=== PATIENT | female | born 1945 | race Asian ===

== ENCOUNTER 2018-08-11 20:52 | Inpatient (IN) | payer MEDICARE, MEDICAID ==
[~2018-08-11] VITALS: Ht 152.4 cm; Wt 47.2 kg
[2018-08-11] MEDS ORDERED: Solu-MEDROL 125mg Inj IVP ONE (21:00)
--- NOTE | 2018-08-11 21:00 | Emergency Room Report ---
History of Present Illness General Source: Patient Present Illness HPI Patient is a 73-year-old female brought in by EMS after increased shortness of breath. Patient had recent hospitalization and treatment for pneumonia with ESBL. Patient was noted to have market increased shortness of breath. Patient was brought in by EMS on CPAP. She was noted to have continued difficulty breathing. Patient had prior history of COPD as well as cardiomegaly. Patient had been noted to have increased difficulty with respirations and had some chronic debilitation and was noted to be DNR Allergies: Coded Allergies: No Known Allergies (Unverified , 08/11/18) Patient History Past Medical History: see triage record Reviewed Nursing Documentation: PMH: Agreed; PSxH: Agreed Review of Systems All Other Systems: limited - by mental status Physical Exam General Appearance: alert, severe distress, Chronically Ill Head: normocephalic Neck: limited range of motion Respiratory: accessory muscle use, rhonchi, wheezing Cardiovascular #1: tachycardia, edema - trace Gastrointestinal: normal inspection, soft Genitourinary: no CVA tenderness Musculoskeletal: normal inspection Neurologic: alert, client relations representative III-XII nml as tested, motor weakness Psychiatric: depressed affect Skin: normal inspection, normal color Procedures Critical Care Time Critical Care Time Patient had a critical medical condition which untreated could potentially result in life or limb threatening injury. Total critical care time excluding procedures approximately 45 minutes. Medical Decision Making Diagnostic Impression: Primary Impression: Respiratory failure Additional Impressions: Pneumonitis COPD (chronic obstructive pulmonary disease) ER Course Patient presented for shortness of breath. Differential included but was not limited to anemia, pneumonia, pneumothorax, myocardial infarction, pericardial effusion, congestive heart failure, acidosis. Because of complexity of patient' s case laboratory testing and imaging studies were ordered.Patient was noted to have some evidence of respiratory failure. She was started on BiPAP. Patient was noted to have improvement in her symptoms after BiPAP. Patient was given IV Lasix. She was started on IV antibiotics for presumed pneumonia.Patient was noted to be DNR. Dr. Willian Hobson was contacted for inpatient management. Laboratory Tests Test 08/11/18 20:55 08/11/18 21:05 08/11/18 21:45 08/12/18 04:10 Arterial Blood pH 7.400 (7.350-7.450) Arterial Blood Partial Pressure CO2 44.9 mmHg (35.0-45.0) Arterial Blood Partial Pressure O2 511.0 mmHg (75.0-100.0) H Arterial Blood HCO3 27.2 mmol/L (22.0-26.0) H Arterial Blood Oxygen Saturation 99.2 % (95-100) Arterial Blood Base Excess 2.1 (-2-2) H Chris Test Positive White Blood Count 18.0 K/UL (4.8-10.8) H Pending Red Blood Count 3.06 M/UL (4.20-5.40) L Pending Hemoglobin 8.8 G/DL (12.0-16.0) L Pending Hematocrit 27.5 % (37.0-47.0) L Pending Mean Corpuscular Volume 90 FL (80-99) Pending Mean Corpuscular Hemoglobin 28.8 PG (27.0-31.0) Pending Mean Corpuscular Hemoglobin Concent 32.1 G/DL (32.0-36.0) Pending Red Cell Distribution Width 16.4 % (11.6-14.8) H Pending Platelet Count 94 K/UL (150-450) L Pending Mean Platelet Volume 7.1 FL (6.5-10.1) Pending Neutrophils (%) (Auto) % (45.0-75.0) Pending Lymphocytes (%) (Auto) % (20.0-45.0) Pending Monocytes (%) (Auto) % (1.0-10.0) Pending Eosinophils (%) (Auto) % (0.0-3.0) Pending Basophils (%) (Auto) % (0.0-2.0) Pending Differential Total Cells Counted 100 Neutrophils % (Manual) 92 % (45-75) H Lymphocytes % (Manual) 6 % (20-45) L Monocytes % (Manual) 1 % (1-10) Eosinophils % (Manual) 1 % (0-3) Basophils % (Manual) 0 % (0-2) Band Neutrophils 0 % (0-8) Platelet Estimate Decreased L Platelet Morphology Normal Polychromasia 1+ Anisocytosis 1+ Prothrombin Time 10.5 SEC (9.30-11.50) Prothrombin Time INR 1.0 (0.9-1.1) PTT 28 SEC (23-33) Sodium Level 144 MMOL/L (136-145) Pending Potassium Level 4.9 MMOL/L (3.5-5.1) Pending Chloride Level 107 MMOL/L (98-107) Pending Carbon Dioxide Level 29 MMOL/L (21-32) Pending Anion Gap 8 mmol/L (5-15) Blood Urea Nitrogen 27 mg/dL (7-18) H Pending Creatinine 1.3 MG/DL (0.55-1.30) Pending Estimate Glomerular Filtration Rate mL/min (>60) Pending Glucose Level 249 MG/DL (74-106) H Pending Lactic Acid Level 1.00 mmol/L (0.4-2.0) Calcium Level 8.9 MG/DL (8.5-10.1) Pending Total Bilirubin 0.7 MG/DL (0.2-1.0) Pending Aspartate Amino Transferase (AST) 16 U/L (15-37) Pending Alanine Aminotransferase (ALT) 12 U/L (12-78) Pending Alkaline Phosphatase 46 U/L (46-116) Pending Total Creatine Kinase 33 U/L (26-308) Creatine Kinase MB 0.9 NG/ML (0.0-3.6) Creatine Kinase MB Relative Index 2.7 Troponin I 0.014 ng/mL (0.000-0.056) Pro-B-Type Natriuretic Peptide 65480 pg/mL (0-125) H Pending Total Protein 7.1 G/DL (6.4-8.2) Pending Albumin 2.9 G/DL (3.4-5.0) L Pending Globulin 4.2 g/dL Pending Albumin/Globulin Ratio 0.7 (1.0-2.7) L Urine Color Pale yellow Urine Appearance Clear Urine pH 5 (4.5-8.0) Urine Specific Gonzales 1.010 (1.005-1.035) Urine Protein 3+ (NEGATIVE) H Urine Glucose (UA) Negative (NEGATIVE) Urine Ketones Negative (NEGATIVE) Urine Blood 1+ (NEGATIVE) H Urine Nitrite Negative (NEGATIVE) Urine Bilirubin Negative (NEGATIVE) Urine Urobilinogen Normal MG/DL (0.0-1.0) Urine Leukocyte Esterase 1+ (NEGATIVE) H Urine RBC 2-4 /HPF (0 - 2) H Urine WBC 0-2 /HPF (0 - 2) Urine Squamous Epithelial Cells Few /LPF (NONE/OCC) Urine Bacteria Few /HPF (NONE) Magnesium Level Pending Thyroid Stimulating Hormone (TSH) Pending EKG Diagnostic Results Rate: tachycardiac Rhythm: NSR ST Segments: no acute changes - 129 Status: improved Disposition: ADMITTED INPATIENT Condition: Serious David Mahoney MD Aug 11, 2018 21:00
--- NOTE | 2018-08-11 21:00 | NUR ---
ED Nurse Note: Pt arrived with EMT and family and c/o having SOB and chest pain since 4 hours ago in SNF. Pt has Hx DM , asthma, HTN. Pt is AO x 2 times, BP 174/105, tachycardia (124), SOB with C pap(O2 Sat 100%). ERMD and RT at bedside.
[2018-08-11 21:26] LABS: HEMATOCRIT 27.5 % (37.0-47.0); HEMOGLOBIN 8.8 G/DL (12.0-16.0); MEAN CORPUSCULAR VOLUME 90 FL (80-99); PLATELET COUNT 94 K/UL (150-450); RED BLOOD COUNT 3.06 M/UL (4.20-5.40); RED CELL DISTRIBUTION WIDTH 16.4 % (11.6-14.8)
[2018-08-11 21:36] LABS: ANION GAP 8 mmol/L (5-15); BLOOD UREA NITROGEN 27 mg/dL (7-18); CALCIUM 8.9 MG/DL (8.5-10.1); CARBON DIOXIDE 29 MMOL/L (21-32); CHLORIDE 107 MMOL/L (98-107); CREATININE 1.3 MG/DL (0.55-1.30); POTASSIUM 4.9 MMOL/L (3.5-5.1); SODIUM 144 MMOL/L (136-145)
--- NOTE | 2018-08-11 21:40 | NUR ---
ED Nurse Note: Pt refused F/C insertion, Pt's family states Pt can urine with bedpan. Inform ERMD.
--- NOTE | 2018-08-11 21:47 | NUR ---
ED Nurse Note: Urine and blood sample sent to lab.
[2018-08-11 21:51] LABS: ALANINE AMINOTRANSFERASE 12 U/L (12-78); ALBUMIN 2.9 G/DL (3.4-5.0); ALBUMIN/GLOBULIN RATIO 0.7 (1.0-2.7); ALKALINE PHOSPHATASE 46 U/L (46-116); ASPARTATE AMINO TRANSFERASE 16 U/L (15-37); BILIRUBIN,TOTAL 0.7 MG/DL (0.2-1.0); CKMB 0.9 NG/ML (0.0-3.6); CREATINE KINASE 33 U/L (26-308)
[2018-08-11 21:51] LABS: APPEARANCE,URINE CLEAR; BILIRUBIN, URINE NEGATIVE (NEGATIVE); COLOR,URINE PALE YELLOW; GLUCOSE, URINE (UA) NEGATIVE (NEGATIVE); KETONES,URINE NEGATIVE (NEGATIVE); LEUKOCYTE ESTERASE ,URINE 1+ (NEGATIVE); NITRITE,URINE NEGATIVE (NEGATIVE); PH,URINE 5 (4.5-8.0); PROTEIN,URINE 3+ (NEGATIVE); UROBILINOGEN,URINE NORMAL MG/DL (0.0-1.0)
[2018-08-11 21:54] VITALS: BP 150/71
[2018-08-11] MEDS ORDERED: IPRATROPIU0.2 MG/1 M HHN (22:15)
[2018-08-11] MEDS ORDERED: BENADRYL25 MG ORAL (22:15)
[2018-08-11] MEDS ORDERED: ATORVASTATIN CA10 MG ORAL (22:15)
[2018-08-11] MEDS ORDERED: ZOLPIDEM TARTRAT5 MG ORAL (22:15)
[2018-08-11] MEDS ORDERED: PIPERACIL-TA3.375 G1 IV (22:15)
[2018-08-11] MEDS ORDERED: MILK OF MA400 MG/51 ORAL (22:15)
[2018-08-11] MEDS ORDERED: METOPROLOL SUCC50 MG ORAL (22:15)
[2018-08-11] MEDS ORDERED: PANTOPRAZOLE SO40 MG ORAL (22:15)
[2018-08-11] MEDS ORDERED: ZOFRAN4 MG ORAL (22:15)
[2018-08-11] MEDS ORDERED: FERROUS SULFAT325 MG ORAL (22:15)
[2018-08-11] MEDS ORDERED: ADALAT10 MG ORAL (22:15)
[2018-08-11] MEDS ORDERED: GLUCAGON W/DILUE1 MG IJ (22:15)
[2018-08-11] MEDS ORDERED: NOVOLOG100 UNIT/5 (22:15)
[2018-08-11] MEDS ORDERED: AMLODIPINE BESYL5 MG ORAL (22:15)
[2018-08-11] MEDS ORDERED: Piperacillin/Tazobactam 3.375 GM in NS 110 ML IVPB ONE (22:45)
[2018-08-11] MEDS ORDERED: Vancomycin 1 GM in D5W 275 ML IVPB SCH (22:45)
--- NOTE | 2018-08-11 22:47 | NUR ---
ED Nurse Note: Dr Hobson seen Pt and family at bedside.
[2018-08-11] MEDS ORDERED: Gentamicin 120mg/100ml NS INJ 100 ML IVPB ONE (23:30)
[2018-08-11 23:54] VITALS: BP 147/75
[2018-08-12] VITALS (7 sets, daily range): BP systolic 132–152; BP diastolic 63–80
--- NOTE | 2018-08-12 | NUR ---
ED Nurse Note: Pt admit to [facility] room 237-1. Report and belongings given to RN Bharat. Family is on bedside.
--- NOTE | 2018-08-12 00:10 | NUR ---
NURSE NOTES: Report received from MARYSE Garcias. [facility] Pt is alert and oriented x3. Denies any pain at this time. Telemonitor applied and SR noted. Belonging checked and skin intact. V/S of BP 152/80, HR 98, RR 23, Sat 100%, on Bipap 15/5, 35%. IV on R FA 20 G, intact and patent. L FA 20 G, intact and patent. Family member at the bed side. Bed in the lowest position. Side rails up x3. Call light within reach. Will continue to monitor.
[2018-08-12] MEDS ORDERED: GENTAMICIN IVPB ONE (00:33)
[2018-08-12] MEDS ORDERED: Zosyn 3.375gm inj ONE (00:34)
--- NOTE | 2018-08-12 03:00 | NUR ---
NURSE NOTES: Observed pt sleeping on the bed. Family member at the bedside. No acute distress noted at this time.
[2018-08-12] MEDS: Albuterol/Ipratropium 3ml neb HHN SCH ×6 (03:18→23:01)
[2018-08-12] MEDS ORDERED: NORVASC5 MG ORAL (03:47)
[2018-08-12] MEDS ORDERED: PROTONIX40 MG ORAL (03:47)
[2018-08-12] MEDS ORDERED: CATAPRES0.1 MG ORAL ×2 (03:47)
[2018-08-12] MEDS ORDERED: PROSTAT SUGAR FREE PO (03:47)
[2018-08-12] MEDS ORDERED: FOLIC ACID1 MG ORAL (03:47)
[2018-08-12] MEDS ORDERED: FERROUS SULFAT325 MG ORAL (03:47)
[2018-08-12] MEDS ORDERED: ACETAMINOPHEN325 M1 ORAL (03:47)
[2018-08-12] MEDS ORDERED: CREON DR 36,001 EACH PO (03:47)
[2018-08-12] MEDS ORDERED: JANUVIA25 MG ORAL (03:47)
[2018-08-12] MEDS ORDERED: DUONEB 0.5-3(2.53 ML HHN (03:47)
[2018-08-12] MEDS ORDERED: DULCOLAX10 MG RC (03:47)
[2018-08-12] MEDS: Piperacillin/Tazobactam 3.375 GM in NS 110 ML IVPB SCH ×3 (05:45→21:10)
[2018-08-12 06:12] LABS: HEMATOCRIT 23.2 % (37.0-47.0); HEMOGLOBIN 7.6 G/DL (12.0-16.0); MEAN CORPUSCULAR VOLUME 90 FL (80-99); PLATELET COUNT 57 K/UL (150-450); RED BLOOD COUNT 2.59 M/UL (4.20-5.40); RED CELL DISTRIBUTION WIDTH 16.1 % (11.6-14.8); WHITE BLOOD COUNT 10.7 K/UL (4.8-10.8)
[2018-08-12 06:34] LABS: ALANINE AMINOTRANSFERASE 7 U/L (12-78); ALBUMIN 2.5 G/DL (3.4-5.0); ALBUMIN/GLOBULIN RATIO 0.6 (1.0-2.7); ALKALINE PHOSPHATASE 42 U/L (46-116); ANION GAP 5 mmol/L (5-15); ASPARTATE AMINO TRANSFERASE 11 U/L (15-37); BILIRUBIN,TOTAL 0.7 MG/DL (0.2-1.0); BLOOD UREA NITROGEN 29 mg/dL (7-18); CALCIUM 8.7 MG/DL (8.5-10.1); CARBON DIOXIDE 28 MMOL/L (21-32); CHLORIDE 108 MMOL/L (98-107); CREATININE 1.4 MG/DL (0.55-1.30); SODIUM 141 MMOL/L (136-145)
[2018-08-12] MEDS: NovoLOG Insulin Flexpen SUBQ SCH ×4 (06:41→21:08)
--- NOTE | 2018-08-12 07:30 | NUR ---
RESPIRATORY NOTE: Received pt on ordered BiPAP settings. Removed BiPAP mask to offset pressure, assess skin integrity, and readjust mask. No skin breakdown or redness noted. BiPAP mask placed back on. BiPAP alarms are on and audible. BiPAP is plugged into red outlet. Will monitor pt progress.
--- NOTE | 2018-08-12 07:56 | NUR ---
HAND-OFF: Report given to MARYSE Holm.
--- NOTE | 2018-08-12 08:05 | NUR ---
NURSE NOTES: Received patient on bipap 15/5 35%. at bedside. Switched to NC 3 L. Patient is now being fed by hustand. Purewhich intact. Skin intact. R forearm 20 L forearm 20. HBG reported to Dr. Phillips - new order put by previous shift nurse to repeat stat CBC. Luxembourgish speaking - language barrier. Will continue to monitor patient.
--- NOTE | 2018-08-12 08:23 | NUR ---
CASE MANAGEMENT:REVIEW 73 YR OLD FEMALE BIBA FROM [facility] CC; SOB AND CHEST PAIN SI: RESPIRATORY FAILURE. COPD 98.4 124 28 167/81 100% ON BIPAP WBC+18.0 H/H-8.8/27.5 IS: IV SOLUMEDROL X1 IV LASIX X1 IV ZOSYN X1 IV VANCOMYCIN X1 IV GENTAMICIN X1 CHEST XRAY BLOOD CX : TO STEP DOWN UNIT
[2018-08-12 08:47] LABS: HEMATOCRIT 24.7 % (37.0-47.0); HEMOGLOBIN 7.9 G/DL (12.0-16.0); MEAN CORPUSCULAR VOLUME 89 FL (80-99); PLATELET COUNT 64 K/UL (150-450); RED BLOOD COUNT 2.78 M/UL (4.20-5.40); RED CELL DISTRIBUTION WIDTH 16.3 % (11.6-14.8); WHITE BLOOD COUNT 10.1 K/UL (4.8-10.8)
--- NOTE | 2018-08-12 09:22 | NUR ---
NURSE NOTES: HBG repeat result reported to Dr. Phillips.
--- NOTE | 2018-08-12 09:30 | NUR ---
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
--- NOTE | 2018-08-12 11:26 | Diagnostic Imaging Report ---
Indication: Shortness of breath Technique: One view of the chest Comparison: none Findings: There is diffuse bilateral extensive interstitial and airspace disease. More focal masslike opacity is seen in the right upper lobe, measuring approximately 4 cm in diameter. There is suggestion of bilateral pleural fluid. Impression: Bilateral diffuse interstitial and airspace disease, acuity indeterminate Right upper lobe masslike opacity versus more focal consolidation Suspect small bilateral pleural effusions.
--- NOTE | 2018-08-12 12:07 | NUR ---
NURSE NOTES: Family at bedside. Patient turned and repositioned. Able to make needs known - asked for bedpan to void. No new orders at this time. Will continue plan of care.
--- NOTE | 2018-08-12 13:14 | Consultation ---
DATE OF CONSULTATION: 08/11/2018 CARDIOLOGY CONSULTATION CONSULTING PHYSICIAN: Willian Hobson M.D. REQUESTING PHYSICIAN: Doug Kaur M.D. REASON: Acute respiratory distress with elevated natriuretic peptide assay. HISTORY OF PRESENT ILLNESS: This is a Italian female age 73 who has [facility] following an episode of pneumonia treated just two weeks ago at [facility]. The patient apparently had severe respiratory distress and required BiPAP support for at time. She grew out Pseudomonas and has been on IV antibiotics to complete her course of therapy at the jail facility. Today, her respiratory distress developed and worsened prompting transfer to the emergency room. The patient denies chest pain. She has been congested. She has been getting her antibiotics while she improved since her initial hospitalization several weeks ago, she has declined over the past few days. She had remained on antibiotics. PAST MEDICAL HISTORY: Longstanding asthma, hypertension, type 2 diabetes mellitus, hyperlipidemia, chronic anemia, chronic kidney disease, and history of congestive heart failure. ALLERGIES: None. MEDICATIONS: Reviewed and reconciled. SOCIAL HISTORY: Negative for smoking, alcohol, or substance abuse. She emigrated from [place] about 10 years ago. Advanced directives, Do Not Intubate. FAMILY HISTORY: Noncontributory. REVIEW OF SYSTEMS: Otherwise not obtainable from patient due to her respiratory symptoms and language barrier, however, her daughter has made available with pertinent data outlined above. PHYSICAL EXAMINATION: GENERAL: Frail, in moderate respiratory distress. Alert. VITAL SIGNS: Blood pressure 150/71, pulse 101, respirations 22, afebrile, T-max 100.7, oxygen saturation is 100% on BiPAP mask. LUNGS: Accessory muscle use. LUNGS: Coarse breath sounds. Scattered rhonchi. Expiratory wheezing. HEART: Regular rhythm. Rapid rate. Normal S1, S2. ABDOMEN: Soft. EXTREMITIES: No edema. LABORATORY AND DIAGNOSTIC DATA: EKG, sinus tachycardia, otherwise normal. Troponin 0.014. Pro-natriuretic peptide over 20,000. Lactic acid 1. BUN 27, creatinine 1.3, potassium 4.9. Albumin 2.9. ABG, 7.40, 45, 511. White count 18, hemoglobin 8.8, platelets 94,000. Urinalysis with 0 to 2 white cells. Chest x-ray with extensive infiltrates right greater than left. IMPRESSION: 1. Aspiration, healthcare-acquired pneumonia, recent Pseudomonas pneumonia. 2. Acute respiratory insufficiency. 3. Leukocytosis. 4. Chronic anemia. 5. Moderate protein-calorie malnutrition. 6. Hypoxia. 7. Acute on chronic diastolic congestive heart failure. 8. Type 2 diabetes mellitus with no signs of acidosis. PLAN: 1. Do Not Intubate reaffirmed with family members namely has been a daughter. 2. Inhaled bronchodilators. 3. Panculture. 4. Broad-spectrum antibiotics including Pseudomonas coverage. 5. Continue beta-sher. 6. Hold IV fluids. 7. Titrate antihypertensives based on clinical parameters. 8. DVT and stress ulcer prophylaxes. 9. Insulin coverage by sliding scale. 10. Taper oxygen and BiPAP support as clinical condition improves. Willian Hobson M.D. DR: ISAMAR JOB#: [id number] CC:
--- NOTE | 2018-08-12 14:48 | NUR ---
ST NOTE: BEDSIDE SWALLOW EVAL RECEIVED BEDSIDE SWALLOW EVAL ORDER CHART REVIEWED PRIOR THE EVALUATION PT IS A 73-YEAR-OLD MOHAWK-SPEAKING FEMALE WHO WAS ADMITTED DUE TO RESP FAILURE. DYSPHAGIA RISK FACTORS: ACUTE RESP INSUFFICIENCY, ASP PNA, RECENT BILATERAL PNA W/PLEURAL EFFUSION, H/O GERD, COPD, DMII, HTN, ?H/O DEMENTIA. (PER DAUGHTER, PT DOESN'T HAVE DEMENTIA BUT FORGETFUL), MODERATE PROTEIN-CALORIE MALNUTRITION. PLOF: PT LIVES AT HOME WITH FAMILY PRIOR LAST HOSPITALIZATION AT [facility] FROM 07/28/18-08/05/18. PT WAS DISCHARGED TO [facility]. PER CHART, PT WAS ON NCS REGULAR WITH THIN LIQUID DIET. PER PT'S POLST: DNR/DNI, SELECTIVE TX AND OKAY WITH TRIAL PERIOD OF ARTIFICIAL NUTRITION, INCLUDING FEEDING TUBES. CURRENT STATUS: PT WAS OFF THE BIPAP; AND PT WAS ON NC(3L). SPO2: 100/102 AND RR: 22. PER DAUGHTER, DID NOT NOTICE ANY SWALLOWING DIFFICULTY AND PT'S DENTURES DO NOT FIT HER VERY WELL. MEDICATION: PT IS ON PROTONIX GIVEN PO TRIALS: THIN(TSP/CUP), NECTAR THICK(TSP) AND PUREE(TSP) INITIAL IMPRESSION: PROBABLE MILD TO MODERATE OR WORSENED OROPHARYNGEAL DYSPHAGIA MISSING TEETH. MILDLY DECREASED LABIAL AND LINGUAL MOVEMENT AND STRENGTH MILD INCREASED ORAL TRANSIT TIME AND OROPHARYNGEAL TRANSIT TIME, FAIR LARYNGEAL ELEVATION, DELAYED COUGH WITH THIN LIQUID WAS NOTED. HAS HIGH (SILENT) ASPIRATION DUE TO RECURRENT PNA. RECOMMENDATIONS: 1. FOR QUALITY OF LIFE, CONTINUE ORAL DIET CHANGED DIET TO CCH(HIGH)MOIST PUREE WITH NECTAR THICK LIQUIDS. 2. STRICT ASPIRATION/REFLUX PRECAUTIONS WITH 1TO1 FEEDING. 3. VIDEOSWALLOW STUDY 4. SKILLED ST SERVICE AND MANAGEMENT. D/W PT'S DAUGHTER, RN, RITAI. POSTED ASPIRATION/REFLUX PRECAUTIONS SIGN.
--- NOTE | 2018-08-12 16:14 | Consultation ---
Consult Note Assessment/Plan dict resp failure pneum CHF agree w present rx Uriel Miranda MD Aug 12, 2018 16:14
--- NOTE | 2018-08-12 18:06 | NUR ---
NURSE NOTES: BM x1 large, brown, soft. No new orders. VSS. Tachycardic - MD aware. Will continue plan of care.
--- NOTE | 2018-08-12 19:05 | NUR ---
NURSE NOTES: Received report from Bebeto Fontaine RN. Patient is awake in bed, A/O x3. No s/s of acute distress noted. 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 Saturating well on 2L O2 via nasal cannula. Right forearm 20g IV saline lock, intact and patent. Left forearm 20g IV saline lock, intact and patent. Bed locked in lowest position with side rails up x3. Call light left within reach, family remains at bedside. Will continue to monitor. Addendum: 08/12/18 at 2008 by ARIELLA GALINDO RN Patient is on 3L O2 -- NOT 2L
[2018-08-12] MEDS ORDERED: Heparin 5000 units/ml inj SUBQ SCH (21:00)
[2018-08-12] MEDS: Metoprolol 25mg tab ORAL SCH (21:09)
--- NOTE | 2018-08-12 21:45 | NUR ---
HAND-OFF: Report given to Josesito Ballard RN.
--- NOTE | 2018-08-12 21:50 | NUR ---
NURSE NOTES: Received patient from ARIELLA SERRA. Alert and oriented x 4. able to make needs known.on NC 2L with no respiratory distress noted. o2 saturation 98%.ST with HR of 119. Denies any pain at this time. family at bedside.call light in reach. bed locked in low position. will continue to monitor patient.
--- NOTE | 2018-08-12 23:00 | Consultation ---
DATE OF CONSULTATION: 08/12/2018 PULMONARY CONSULTATION HISTORY OF PRESENT ILLNESS: The patient is a 73-year-old Yoruba-speaking female who presented to the emergency department from a nearby long term. The history is obtained from review of the records and from the daughter at the bedside. The patient was hospitalized about two weeks ago at [facility] with pneumonia and was found to have pseudomonas infection. I do not know if she had a bloodstream infection. She was treated with antibiotics and transferred to a long term where she became worse and developed respiratory distress. She was transferred here by paramedics and was placed on BiPAP initially. She has improved and now is in less distress. She is coughing up some thick sputum. She is not having any high fevers at this time. PAST MEDICAL HISTORY: The patient never smoked. She has longstanding asthma, hypertension, diabetes, hyperlipidemia, chronic kidney disease, and congestive heart failure. ALLERGIES: None. MEDICATIONS: Reviewed. She is presently on vancomycin and Zosyn in addition to respiratory treatments. CODE STATUS: DNR according to pulse. REVIEW OF SYSTEMS: Cannot be obtained. According to the daughter, the patient is normally functioning at home prior to her illness. PHYSICAL EXAMINATION: GENERAL: The patient is alert and responds appropriately. She is coughing frequently and sounds congested. VITAL SIGNS: Show that she had a temperature up to 100.7, but is down at this time. Other vital signs are stable. Her saturations are 100% on nasal cannula. She was on BiPAP overnight, is improved at this time. HEENT: Head is normocephalic. NECK: No jugular venous distention. CHEST: Has extensive rales on the right side more than the left, anterior and posterior. CARDIAC: Rhythm is regular. ABDOMEN: Soft and nontender. Liver and spleen are not enlarged. EXTREMITIES: No clubbing, cyanosis, or edema. LABORATORY AND DIAGNOSTIC DATA: Chest x-ray is reviewed and shows extensive bilateral infiltrates and possible edema. Laboratory studies are notable for BUN 29, creatinine 1.4, blood sugar 294, natriuretic peptide 21,000, and albumin 2.5. White count was 108[address] last night, but today is down to 10,000 and hemoglobin 7.9. Blood gas was satisfactory. Urinalysis is negative. IMPRESSION: 1. Acute respiratory failure, requiring BiPAP, improved. 2. Sepsis. 3. Extensive bilateral pneumonia. 4. Congestive heart failure. 5. Diabetes. 6. Hypertension. PLAN: The patient is on appropriate respiratory treatments and antibiotics as well as oxygen. We will use BiPAP at night for the present time. If she does not improve, Infectious Disease consultation would be suggested. Thank you for asking me to see her in consultation. Uriel Miranda M.D. DR: DIMAS JOB#: [id number] CC: Waleska Oconnell M.D. MTDD
[2018-08-12] MEDS: Vancomycin 500mg/D5W 110ml IVPB SCH ×2 (23:30)
[2018-08-13] VITALS (7 sets, daily range): BP systolic 129–173; BP diastolic 63–88
[2018-08-13] MEDS: Albuterol/Ipratropium 3ml neb HHN SCH ×6 (03:00→22:58)
--- NOTE | 2018-08-13 04:00 | Progress Note ---
DATE: 08/12/2018 CARDIOLOGY PROGRESS NOTE SUBJECTIVE: The patient is slightly improved. She is off BiPAP earlier today and on a cannula. She continues to have cough, congestion, and shortness of breath. OBJECTIVE: VITAL SIGNS: Blood pressure 147/67, pulse 130, respirations 20, afebrile. LUNGS: Coarse breath sounds. Moderate rhonchi, rales. HEART: Regular rhythm. Rapid rate. Normal S1, S2. ABDOMEN: Soft, trace edema. LABORATORY DATA: White count 10, hemoglobin 7.9. Potassium 5, BUN 29, creatinine 1.4. Magnesium 1.2. Pro-natriuretic peptide 21,000. IMPRESSION: 1. Extensive pneumonia. 2. History of Pseudomonas pneumonia. 3. Acute respiratory failure. 4. Acute on chronic diastolic congestive heart failure. 5. Severe hypomagnesemia. 6. Severe protein-calorie malnutrition. 7. Sepsis. 8. Hypertensive heart disease. PLAN: 1. Antimicrobials. 2. Await cultures. 3. Respiratory hygiene. 4. BiPAP support. 5. IV magnesium. 6. DVT and stress ulcer prophylaxis. 7. Cautious diuresis. 8. Followup echocardiogram report. Willian Hobson M.D. DR: LYNN JOB#: [id number] CC:
[2018-08-13 05:48] LABS: HEMATOCRIT 22.2 % (37.0-47.0); HEMOGLOBIN 7.2 G/DL (12.0-16.0); MEAN CORPUSCULAR VOLUME 90 FL (80-99); PLATELET COUNT 79 K/UL (150-450); RED BLOOD COUNT 2.46 M/UL (4.20-5.40); RED CELL DISTRIBUTION WIDTH 16.7 % (11.6-14.8); WHITE BLOOD COUNT 14.9 K/UL (4.8-10.8)
--- NOTE | 2018-08-13 05:55 | NUR ---
Patient was placed on Bipap due to being in distress. patient tolerated breathing treatment well but still in distress. Patients breath sounds are diminished rales wheeze. patient is sating 94-99%. patient seems comfortable on BIPAP. will continue to monitor. RESPIRATORY NOTE:
[2018-08-13] MEDS: Piperacillin/Tazobactam 3.375 GM in NS 110 ML IVPB SCH ×3 (06:00→22:16)
[2018-08-13] MEDS: NovoLOG Insulin Flexpen SUBQ SCH ×4 (06:04→21:00)
--- NOTE | 2018-08-13 07:43 | NUR ---
RESPIRATORY NOTE: received pt on bipap 15/5 fio2 45%. pt is labored breathing with bilateral rhonchi/wheeze upon auscultation. HR slightly elevated prior to breathing tx. current spo2 96%. no redness or skin tears around face or neck area. will cont to monitor pt.
--- NOTE | 2018-08-13 07:55 | NUR ---
HAND-OFF: Report given to MARYSE KENNEDY using SBAR at bedside.patient still on BiPAP 15/5 45%.
--- NOTE | 2018-08-13 07:55 | NUR ---
NURSE NOTES: Report received from Olena Ballard RN.Pt sitting up on bed,sob on Bipap 15/5 Fio2 45%,anxious,S-Tach on the monitor,,tachypneic RR 30/min,kept NPO bec on Bipap,skin warm and dry IV sites to LFA and RFA intact,SR up x2 HOB elevated,bed lock in lowest position,daughter at bedside.
[2018-08-13] MEDS: Metoprolol 25mg tab ORAL SCH (09:00)
--- NOTE | 2018-08-13 09:10 | NUR ---
NURSE NOTES: Dr Miranda at bedside,discussed with family member re plans of care.informed re low H/H,ordered blood transfusion x1.
--- NOTE | 2018-08-13 09:21 | General Progress Note ---
Assessment/Plan Problem List: (1) Dyspnea ICD Codes: R06.00 - Dyspnea, unspecified SNOMED: 573825181 (2) Respiratory distress ICD Codes: R06.03 - Acute respiratory distress SNOMED: 772936329 (3) COPD (chronic obstructive pulmonary disease) ICD Codes: J44.9 - Chronic obstructive pulmonary disease, unspecified SNOMED: 35984331 (4) Pneumonitis ICD Codes: J18.9 - Pneumonia, unspecified organism SNOMED: 896218005 (5) Respiratory failure ICD Codes: J96.90 - Respiratory failure, unspecified, unspecified whether with hypoxia or hypercapnia SNOMED: 650986989 Status: not improved Assessment/Plan iv abx resp rx follow up cultures transfuse checks tool ob ct chest when stable Subjective ROS Limited/Unobtainable: No Constitutional: Reports: malaise, weakness HEENT: Reports: no symptoms Cardiovascular: Reports: chest pain Respiratory: Reports: cough, shortness of breath, sputum Gastrointestinal/Abdominal: Reports: no symptoms Genitourinary: Reports: no symptoms Neurologic/Psychiatric: Reports: no symptoms Endocrine: Reports: no symptoms Hematologic/Lymphatic: Reports: anemia Allergies: Coded Allergies: No Known Allergies (Unverified , 08/11/18) All Systems: reviewed and negative except above Subjective remains congested. + cough. no fevers. no bleeding. Objective Last 24 Hour Vital Signs Date Time Temp Pulse Resp B/P (MAP) Pulse Ox O2 Delivery O2 Flow Rate FiO2 08/13/18 07:44 118 26 97 Bi-pap 45 08/13/18 07:41 120 32 94 Facial 45 08/13/18 07:38 121 27 93 Bi-pap 45 08/13/18 05:35 104 28 98 Facial 35 08/13/18 04:27 95 26 100 Nasal Cannula 3.0 36 08/13/18 04:17 97 28 97 Full Face 35 08/13/18 04:17 97 27 97 Nasal Cannula 2.0 28 08/13/18 04:00 97.7 98 28 152/74 (100) 98 08/13/18 04:00 Bi-pap 08/13/18 04:00 45 08/13/18 04:00 98 08/13/18 01:07 120 33 95 Full Face 35 08/13/18 00:00 45 08/13/18 00:00 98.6 129 30 173/86 (115) 97 08/13/18 00:00 Bi-pap 08/13/18 00:00 45 08/13/18 00:00 129 08/12/18 23:12 121 31 98 Full Face 35 08/12/18 23:11 119 28 100 Nasal Cannula 3.0 36 08/12/18 23:00 45 08/12/18 22:59 110 28 96 Nasal Cannula 2.0 28 08/12/18 21:09 130 147/67 08/12/18 20:00 Bi-pap 08/12/18 20:00 98.8 130 30 147/67 (93) 100 08/12/18 20:00 114 08/12/18 20:00 3.0 08/12/18 19:28 119 27 100 Nasal Cannula 3.0 36 08/12/18 19:20 118 26 100 Nasal Cannula 2.0 28 08/12/18 16:00 112 08/12/18 16:00 99.1 112 20 141/71 (94) 100 08/12/18 16:00 Bi-pap 08/12/18 16:00 3.0 08/12/18 15:15 92 20 100 Nasal Cannula 2.0 28 08/12/18 15:15 Nasal Cannula 08/12/18 12:00 Bi-pap 08/12/18 12:00 95 08/12/18 12:00 98.1 102 24 132/63 (86) 100 08/12/18 12:00 3.0 08/12/18 11:59 103 22 100 Nasal Cannula 3.0 36 08/12/18 11:42 88 20 100 Nasal Cannula 2.0 28 Intake and Output 08/12/18 08/13/18 19:00 07:00 Intake Total 347.5 ml Output Total 800 ml Balance -452.5 ml Intake Oral 100 ml IV Total 247.5 ml Output Urine Total 800 ml # Voids 3 Laboratory Tests 08/12/18 11:53: Random Gentamicin Level 3.7 08/13/18 03:40: White Blood Count 14.9H, Red Blood Count 2.46L, Hemoglobin 7.2L, Hematocrit 22.2L, Mean Corpuscular Volume 90, Mean Corpuscular Hemoglobin 29.3, Mean Corpuscular Hemoglobin Concent 32.5, Red Cell Distribution Width 16.7H, Platelet Count 79L, Mean Platelet Volume 6.1L, Neutrophils (%) (Auto) , Lymphocytes (%) (Auto) , Monocytes (%) (Auto) , Eosinophils (%) (Auto) , Basophils (%) (Auto) , Neutrophils % (Manual) [Pending], Lymphocytes % (Manual) [Pending], Platelet Estimate [Pending], Platelet Morphology [Pending] Height (Feet): 5 Height (Inches): 0.00 Weight (Pounds): 103 General Appearance: WD/WN, lethargic, confused Cardiovascular: normal rate, regular rhythm Respiratory/Chest: rhonchi - bilaterally Abdomen: normal bowel sounds, non tender, soft, no organomegaly Edema: no edema noted Arm (L), no edema noted Arm (R), no edema noted Leg (L), no edema noted Leg (R), no edema noted Pedal (L), no edema noted Pedal (R), no edema noted Generalized Neurologic: alert Doug Kaur MD Aug 13, 2018 09:21
--- NOTE | 2018-08-13 09:40 | NUR ---
RESPIRATORY NOTE: attempted to wean pt off bipap, abg was drawn and pt felt SOB so placed pt back on bipap. pt started to desaturate to mid 80s on 45% VM. On bipap, saturation 94-96% on fio2 45%. will cont to monitor
[2018-08-13] MEDS ORDERED: Isovue-300 100ml vial INJ PRN (10:15)
--- NOTE | 2018-08-13 11:33 | NUR ---
ST NOTE: SWALLOW STATUS: FOLLOWED UP PT'S CONDITIONS. PT SEEN AT BEDSIDE IN AM. PT WAS PUT BACK ON BIPAP LAST NIGHT DUE TO RESP INSUFFICIENCY. RT, MILLY, AT BEDSIDE. PER RT, PT WAS UNABLE OFF THE BIPAP(FIO2:40%), RESPIRATORY RATE IS HIGH: >30s, HR:121. PT ALERT, SHALLOW BREATHING WAS NOTED. PT'S DAUGHTER ALSO AT BEDSIDE. DISCUSSED WITH PT'S DAUGHTER, PT NEEDS TO BE ON NPO AT THIS TIME DUE TO RESP DISTRESS PT IS AT HIGH RISK FOR ASPIRATION. DAUGHTER AGREED. D/W RNMARCIA AND INFORMED MD, DR. STEWARD. POSTED NPO SIGN. Addendum: 08/13/18 at 1502 by ABIGAIL SIMMONS SCRAP MET[employer] BURNER CONSIDER NGT(TEMPORARILY NONORAL FEEDING) WHEN PT IS OFF THE BIPAP.
--- NOTE | 2018-08-13 12:26 | NUR ---
NURSE NOTES: Pt unstable,HR 144/min sustained,temp check T100.6, cold compress applied to forehead and armpits.Pt NPO will give Tylenol per rectum,Called Dr Kaur for elevated HR orders given and carried out.
--- NOTE | 2018-08-13 12:33 | NUR ---
RADIOLOGY DEPT., CHEST X-RAY DONE.-P.DYE
--- NOTE | 2018-08-13 13:38 | Pulmonology Progress Note ---
Assessment/Plan Assessment/Plan 1. Acute respiratory failure, requiring BiPAP, not improved. 2. Sepsis. 3. Extensive bilateral pneumonia. 4. Congestive heart failure. 5. Diabetes. 6. Hypertension. worse and back on BiPAP due to SOB anemia worse - transfuse cont abx serology CT when able Subjective Respiratory: Reports: productive cough, shortness of breath Allergies: Coded Allergies: No Known Allergies (Unverified , 08/11/18) Objective Last 24 Hour Vital Signs Date Time Temp Pulse Resp B/P (MAP) Pulse Ox O2 Delivery O2 Flow Rate FiO2 08/13/18 12:05 Bi-pap 08/13/18 12:04 45 08/13/18 12:01 99.0 125 19 152/84 (106) 93 08/13/18 12:00 129 08/13/18 10:47 121 30 99 Bi-pap 40 08/13/18 10:38 120 32 97 Facial 45 08/13/18 10:36 122 31 96 Bi-pap 45 08/13/18 09:39 120 34 94 Facial 45 08/13/18 09:00 114 166/79 08/13/18 08:00 98.0 114 21 166/79 (108) 96 08/13/18 08:00 Bi-pap 08/13/18 08:00 45 08/13/18 08:00 120 08/13/18 07:44 118 26 97 Bi-pap 45 08/13/18 07:41 120 32 94 Facial 45 08/13/18 07:38 121 27 93 Bi-pap 45 08/13/18 05:35 104 28 98 Facial 35 08/13/18 04:27 95 26 100 Nasal Cannula 3.0 36 08/13/18 04:17 97 28 97 Full Face 35 08/13/18 04:17 97 27 97 Nasal Cannula 2.0 28 08/13/18 04:00 97.7 98 28 152/74 (100) 98 08/13/18 04:00 Bi-pap 08/13/18 04:00 45 08/13/18 04:00 98 08/13/18 01:07 120 33 95 Full Face 35 08/13/18 00:00 45 08/13/18 00:00 98.6 129 30 173/86 (115) 97 08/13/18 00:00 Bi-pap 08/13/18 00:00 45 08/13/18 00:00 129 08/12/18 23:12 121 31 98 Full Face 35 08/12/18 23:11 119 28 100 Nasal Cannula 3.0 36 08/12/18 23:00 45 08/12/18 22:59 110 28 96 Nasal Cannula 2.0 28 08/12/18 21:09 130 147/67 08/12/18 20:00 Bi-pap 08/12/18 20:00 98.8 130 30 147/67 (93) 100 08/12/18 20:00 114 08/12/18 20:00 3.0 08/12/18 19:28 119 27 100 Nasal Cannula 3.0 36 08/12/18 19:20 118 26 100 Nasal Cannula 2.0 28 08/12/18 16:00 112 08/12/18 16:00 99.1 112 20 141/71 (94) 100 08/12/18 16:00 Bi-pap 08/12/18 16:00 3.0 08/12/18 15:15 92 20 100 Nasal Cannula 2.0 28 08/12/18 15:15 Nasal Cannula Intake and Output 08/12/18 08/13/18 19:00 07:00 Intake Total 347.5 ml Output Total 800 ml Balance -452.5 ml Intake Oral 100 ml IV Total 247.5 ml Output Urine Total 800 ml # Voids 3 General Appearance: no acute distress HEENT: atraumatic Respiratory/Chest: crackles/rales Cardiovascular: normal rate Microbiology Date/Time Source Procedure Growth Status 08/11/18 21:20 Blood Blood Culture - Preliminary NO GROWTH AFTER 24 HOURS Resulted 08/11/18 21:05 Blood Blood Culture - Preliminary NO GROWTH AFTER 24 HOURS Resulted 08/11/18 23:15 Rectum VRE Culture - Final Enterococcus Faecium - Vre Complete Laboratory Tests 08/13/18 03:40: White Blood Count 14.9H, Red Blood Count 2.46L, Hemoglobin 7.2L, Hematocrit 22.2L, Mean Corpuscular Volume 90, Mean Corpuscular Hemoglobin 29.3, Mean Corpuscular Hemoglobin Concent 32.5, Red Cell Distribution Width 16.7H, Platelet Count 79L, Mean Platelet Volume 6.1L, Neutrophils (%) (Auto) , Lymphocytes (%) (Auto) , Monocytes (%) (Auto) , Eosinophils (%) (Auto) , Basophils (%) (Auto) , Differential Total Cells Counted 100, Neutrophils % ( Manual) 88H, Lymphocytes % (Manual) 4L, Monocytes % (Manual) 8, Eosinophils % ( Manual) 0, Basophils % (Manual) 0, Band Neutrophils 0, Platelet Estimate DecreasedL, Platelet Morphology Normal, Anisocytosis 1+ 08/13/18 04:00: Legionella pneumophila Group 1 Ab [Pending], Legionella pneumophilia IgM Group 1 [Pending], Mycoplasma pneumoniae IgG Antibody [Pending], Mycoplasma pneumoniae IgM Ab Titer [Pending] 08/13/18 09:30: Arterial Blood pH 7.408, Arterial Blood Partial Pressure CO2 46.8H, Arterial Blood Partial Pressure O2 61.1L, Arterial Blood HCO3 28.9H, Arterial Blood Oxygen Saturation 90.3L, Arterial Blood Base Excess 3.7H, Chris Test Positive Current Medications Medications (Trade) Dose Ordered Sig/Elida Route PRN Reason Start Time Stop Time Status Last Admin Dose Admin Acetaminophen (Tylenol) 650 mg Q4H PRN ORAL Mild Pain/Temp > 100.5 08/11/18 23:30 09/10/18 23:29 08/12/18 23:31 Albuterol/ Ipratropium (Albuterol/ Ipratropium) 3 ml Q4HRT HHN 08/12/18 03:00 08/17/18 02:59 08/13/18 10:36 Dextrose (Dextrose 50%) 25 ml Q30M PRN IV Hypoglycemia 08/11/18 23:30 09/10/18 23:29 Dextrose (Dextrose 50%) 50 ml Q30M PRN IV Hypoglycemia 08/11/18 23:30 09/10/18 23:29 Insulin Aspart (NovoLOG) BEFORE MEALS AND HS SUBQ 08/12/18 06:30 09/11/18 06:29 08/13/18 06:04 Iopamidol (Isovue-300 100ml) 100 ml NOW PRN INJ Radiology Procedure 08/13/18 10:15 08/15/18 10:01 Metoprolol Tartrate (Lopressor) 25 mg Q12HR ORAL 08/12/18 21:00 09/11/18 20:59 08/12/18 21:09 Pantoprazole (Protonix) 40 mg DAILY ORAL 08/12/18 09:00 09/11/18 08:59 08/12/18 09:20 Piperacillin Sod/ Tazobactam Sod 3.375 gm/Sodium Chloride 110 ml @ 27.5 mls/hr EVERY 8 HOURS IVPB 08/12/18 06:00 08/19/18 05:59 08/13/18 06:00 Vancomycin HCl (Vanco rx to dose) 1 ea DAILY PRN MISC Per rx protocol 08/11/18 23:30 09/10/18 23:29 Vancomycin HCl 500 mg/Dextrose 110 ml @ 110 mls/hr Q24H IVPB 08/12/18 23:00 08/17/18 22:59 08/12/18 23:30 Uriel Miranda MD Aug 13, 2018 13:38
--- NOTE | 2018-08-13 13:41 | NUR ---
RD ASSESSMENT & RECOMMENDATIONS SEE CARE ACTIVITY FOR COMPLETE ASSESSMENT DAILY ESTIMATED NEEDS: Needs based on Pulmonary, DM, underweight/ 45kg 30-35 kcals/kg 1776-1666 total kcals 1-1.5 g protein/kg 45-68 g total protein 20-25 mL/kg 900-1125 total fluid mLs NUTRITION DIAGNOSIS: * Swallowing difficulty R/T dysphagia, respiratory status as evidenced by [employer] recommends NPO at this time, pt on BIPAP. * Altered nutrition related lab values R/T diabetes, CHF, clinical condition as evidenced by elev BGs (294 249), elev BNP (82362), low mag (1.2) CURRENT DIET:NPO PO DIET RECOMMENDATIONS: WHEN SAFE FOR PO -> Low Na/ CCHO LOW (texture per [employer]) ENTERAL NUTRITION RECOMMENDATIONS: Glucerna 1.5 @ 40ml/hr x 24 hrs to provide 960ml, 1440kcal, 79g prot, 729ml free water * Once medically appropriate (currently on BIPAP) and TF indicated and part of POC, obtain GI access. * Initiate Glucerna 1.5 @ 10ml/hr x 6 hrs * Advance 10ml q 4-6 hrs as tolerated to goal rate. * HOB over 30 degrees/ water flush per MD. ADDITIONAL RECOMMENDATIONS: * Calibrated bedscale wt for accurate CBW, weekly wts * Monitor NPO status * Monitor respiratory status, ability to feed- on BIPAP at this time * Monitor lytes, replete as needed (low mag) * W/ oral diet: add Glucerna 1 tetra bi TID
[2018-08-13] MEDS ORDERED: Metoprolol 5mg/5ml Inj IVP SCH ×2 (15:30→21:00)
--- NOTE | 2018-08-13 15:33 | Diagnostic Imaging Report ---
Indication: Dyspnea Technique: One view of the chest Comparison: 08/11/2018 Findings: Current exam slightly less heavily exposed. Extensive diffuse interstitial and airspace disease is seen throughout the right lung, questionably slightly increased. Interstitial and airspace opacities in the left lung are less extensive than the right, probably stable. Bilateral small pleural effusions are again demonstrated. The heart size is upper limits of normal. Again demonstrated is evidence of prior upper lumbar vertebral augmentation procedure Impression: Bilateral right greater than left interstitial and airspace disease, stable on the left, suspect slightly worse on the right over 2 days, allowing for differences in technique Persistent bilateral pleural effusions
--- NOTE | 2018-08-13 17:15 | Consultation ---
DATE OF CONSULTATION: 08/13/2018 INFECTIOUS DISEASE CONSULTATION CONSULTING PHYSICIAN: Fátima Shledon M.D. REFERRING PHYSICIAN: Willian Hobson M.D. REASON FOR CONSULTATION: Pneumonia. HISTORY OF PRESENT ILLNESS: This is a 73-year-old lady with history of hypertension, diabetes, asthma, hyperlipidemia, and congestive heart failure, who was transferred with respiratory distress. She is now on a BiPAP. She grew Pseudomonas and an Infectious Disease consultation has been obtained for antibiotics. PAST MEDICAL HISTORY: 1. Diabetes. 2. Hypertension. 3. Asthma. 4. Hyperlipidemia. 5. Anemia. 6. Chronic kidney disease. 7. Congestive heart failure. SOCIAL HISTORY: No history of smoking, alcohol, or drug use. FAMILY HISTORY: Noncontributory. REVIEW OF SYSTEMS: Unable to obtain currently. MEDICATIONS: As an inpatient, she is on vancomycin, metoprolol, Protonix, insulin, Zosyn, albuterol and ipratropium, and Tylenol. ALLERGIES: No known drug allergies. PHYSICAL EXAMINATION: VITAL SIGNS: Temperature 97.7, T-max of 99.1, pulse 120, respiratory rate 34, and blood pressure 152/74. O2 saturation of 94%. HEENT: Pupils are equally reactive to light and accommodation. Mouth appears clean without thrush. The patient is on a BiPAP. NECK: Supple. No adenopathy. No JVD. CARDIOVASCULAR: Regular rate and rhythm. No murmurs. LUNGS: Clear to auscultation bilaterally. No crackles. No wheezes. ABDOMEN: Soft and nontender. No organomegaly. EXTREMITIES: No cyanosis, no clubbing, no edema. LABORATORY AND DIAGNOSTIC DATA: White count 14.9, hemoglobin 7.2, hematocrit 22.2, MCV 90, and platelet count 79. Neutrophils of 88%. Sodium 141, potassium 5, chloride 108, bicarb 28, BUN 29, and creatinine 1.4. Glucose 294. Calcium 8.7. Total bilirubin 0.7, AST 11, ALT 7, and alkaline phosphatase 42. Troponin 0.014. Beta-natriuretic peptide 21,587. Total protein 6.4, albumin 2.5. UA showing 0 to 2 white cells. Rectal swab was positive for VRE. Blood cultures are negative so far. Chest x-ray showing bilateral diffuse interstitial and airspace disease, right upper lobe mass like opacity versus consolidation, small bilateral pleural effusion. ASSESSMENT: 1. This is a 73-year-old lady with history of diabetes, hypertension, and asthma, who comes in and is found to have possible community-acquired pneumonia versus aspiration pneumonia. 2. Diabetes. 3. Hypertension. 4. Leukocytosis. PLAN: 1. Continue vancomycin and Zosyn. 2. We will order sputum for Gram stain and culture. 3. We will order for serum Legionella antibody. 4. We will order for Mycoplasma serology. 5. Consider CT chest. I would like to thank, Dr. Hobson, for this consultation. Fátima Sheldon M.D. DR: SHAMIR JOB#: [id number] CC:
--- NOTE | 2018-08-13 17:30 | NUR ---
NURSE NOTES: Dr. Hobson at bedside,discussed with family members re pt's condition.
--- NOTE | 2018-08-13 18:30 | History and Physical Report ---
DATE OF ADMISSION: 08/11/2018 HISTORY OF PRESENT ILLNESS: elderly female. She has a history of pneumonia, sepsis, hypertension, diabetes, hyperlipidemia, congestive heart failure, chronic kidney disease, and asthma. She was transferred from a nursing home facility because of respiratory distress. She was hypoxic and short of breath. In the emergency room, was eventually placed on BiPAP. Her x-ray showed extensive bilateral interstitial airspace disease, right upper lobe mass-like density versus consolidation. The patient is now admitted for further inpatient evaluation and care. PAST MEDICAL HISTORY: As above. PAST SURGICAL HISTORY: Unknown. CURRENT MEDICATIONS: Reconciled and reviewed. ALLERGIES: None. FAMILY HISTORY: Unknown. SOCIAL HISTORY: There is no known history of tobacco, ethanol, or drugs. REVIEW OF SYSTEMS: Unobtainable as the patient is currently confused. PHYSICAL EXAMINATION: VITAL SIGNS: Temperature 98, pulse 97, respirations 20, and blood pressure 138/65. GENERAL: The patient is a chronically ill-appearing thin, frail female, in no apparent distress. She is awake, currently on BiPAP. NECK: Supple. HEART: Regular rate and rhythm. LUNGS: Significant for bilateral rhonchi and rales. ABDOMEN: Soft, nontender, and nondistended. EXTREMITIES: Without clubbing, cyanosis, or edema. LABORATORY DATA: Sodium 144, potassium 4.9, BUN 27, and creatinine is 1.3. was 20,000, white count was 21633, and hemoglobin was 8.8. ASSESSMENT: This is an unfortunate female admitted with complaints of respiratory failure secondary to pneumonia, cannot rule out a possible mass. PROBLEM LIST: 1. Pneumonia. 2. Rule out lung cancer. 3. Possible CHF exacerbation. 4. Hypertension. 5. Diabetes. 6. Toxic metabolic encephalopathy. PLAN: 1. Intravenous antibiotics. 2. BiPAP. 3. Monitor H and H and transfuse as needed. 4. Respiratory treatments. 5. Follow up pending cultures. 6. Cardiology, Pulmonary, and Infectious Disease consultations will be obtained. 7. The patient's overall prognosis is poor. Doug Kaur M.D. DR: ALFREDO :21 JOB#: [id number] CC:
--- NOTE | 2018-08-13 18:50 | NUR ---
NURSE NOTES: Pt afebrile at this time,transfused 1 unit PRBC,v/s monitored,stable,no signs of sob or chills presented,will continue to monitor pt.
--- NOTE | 2018-08-13 19:20 | NUR ---
NURSE NOTES: Received report from Laila RN, pt. in bed awake, family at bedside, pt. Alert to name, no signs or symptoms of acute cardiac or respiratory distress noted, bed in lowest position and call light within easy reach, bed alarm on, side rails up x's3 and safety brakes engaged, pt. has cardiac monitoring on, Pt. appears to be sating well on BIPAP 15/5 FIO2 at 50%- no distress noted, pt. comfort measures provided, LFA and RFA both IVs 20G- blood transfusion running- pt. appears to be tolerating well- no reaction noted, will continue to monitor pt. and will plan of care, safety measures continued.
--- NOTE | 2018-08-13 19:25 | NUR ---
RESPIRATORY NOTE: Received pt on current bipap setting. Did not administer breathing treatment because pt's heart rate is high. Pt is labored on bipap. Will continue to monitor pt. Bipap is plugged into red outlet.
--- NOTE | 2018-08-13 19:30 | NUR ---
HAND-OFF: Report given to Lori SERRA,pt sitting up on bed family members at bedside,continous on Bipap.
--- NOTE | 2018-08-13 19:30 | NUR ---
NURSE NOTES: Per endorsement Metoprolol is to be given for elevated heart rate- per nurse no parameters given for heart rate. Called DR. Kaur, per doctor to cancel Metoprolol order given earlier and to put new order for Metoprolol 10mg IV q4 scheduled. hold for heart rate <70- will carry out orders.
--- NOTE | 2018-08-13 20:10 | NUR ---
NURSE NOTES: Left msg for DR. Kaur regarding pt. has oral Lopressor 25mg and if he would like to discontinue as pt. has IV Lopressor now. Also if Lopressor IV push can be changed to IV piggy back per pharmacist Sulema- waiting for call back from doctor.
--- NOTE | 2018-08-13 20:23 | NUR ---
NURSE NOTES: per DR. Mitchell elliott to D/C oral Lopressor and lexi to give Lopressor Via IV carson huff- Sulema at pharmacy notified. Orders carried out.
[2018-08-13] MEDS ORDERED: [UNRECOGNIZED DRUG - OTHER] IVPB SCH ×2 (21:00)
[2018-08-13] MEDS ORDERED: METOPROLOL TARTRATE IVPB SCH ×2 (21:00)
[2018-08-13] MEDS ORDERED: Metoprolol 25mg tab ORAL SCH (21:45)
--- NOTE | 2018-08-13 21:50 | NUR ---
NURSE NOTES: pt. appears to have tolerated blood transfusion well- no signs of distress noted VS stable- 97.9, b/p 129/63, P 108, resp 26, pulse ox 100%- will continue to monitor pt. and with plan of care- family remains at bedside.
[2018-08-13] MEDS: Levemir Flexpen SUBQ SCH (22:19)
[2018-08-13] MEDS: Vancomycin 500mg/D5W 110ml IVPB SCH ×2 (23:23)
--- NOTE | 2018-08-13 23:59 | NUR ---
NURSE NOTES: left msg for DR. Hobson, regarding Lopressor order put in for [id number] but then another order from DR. Kaur for [id number]- waiting for call back from doctor to see which order he wants to continue and which order he wants to discontinue.
[2018-08-14] VITALS: BP 148/76
[2018-08-14] MEDS ORDERED: Metoprolol Tartrate 10 MG in D5W 55 ML IVPB SCH ×2
--- NOTE | 2018-08-14 | NUR ---
NURSE NOTES: Dr. Kaur and Dr. Hobson wrote similar orders for Metoprolol changing PO to IVPB. Kept order for Metoprolol 10mg IVPB q4hr. per Dr. Hobson.
--- NOTE | 2018-08-14 00:45 | Progress Note ---
CARDIOLOGY PROGRESS NOTE DATE: 08/13/2018 SUBJECTIVE: The patient's condition has deteriorated. She is increasingly short of breath and requiring additional oxygen support with BiPAP. Case was discussed at bedside with family members. OBJECTIVE: VITAL SIGNS: Blood pressure 152/84, pulse 125, respirations 19, and temperature 99. GENERAL: Accessory muscle use. LUNGS: Diminished breath sounds and rhonchi with rales bilaterally. HEART: Regular rhythm, rapid rate. Normal S1, S2. ABDOMEN: Soft. EXTREMITIES: No edema. LABORATORY DATA: Blood cultures are negative. Sputum pending. White count 14.9, hemoglobin 7.2. Urinalysis with no active sediment. Potassium 5, sodium 141, bicarbonate 28, BUN 29, and creatinine 1.4. Albumin 2.5. Pro-natriuretic peptide 21,000. IMPRESSION: 1. Extensive bilateral pneumonia. 2. Hypoxia. 3. Respiratory failure. 4. Diabetes mellitus with hyperglycemia. 5. Moderate to severe protein-calorie malnutrition. 6. Asthma. 7. Paroxysmal bronchospasm. 8. Acute on chronic diastolic congestive heart failure. 9. Hypomagnesemia. 10. Anemia, acute on chronic. PLAN: 1. BiPAP support. 2. Oxygenation. 3. Consider NG tube feeding. 4. Packed red blood cell transfusion. 5. Diuresis. 6. Increase insulin. 7. Magnesium replacement. 8. DNR. Willian Hobson M.D. DR: OSMAN JOB#: [id number] CC:
[2018-08-14] MEDS: Metoprolol Tartrate 10 MG in D5W 55 ML IVPB SCH ×6 (01:33→20:44)
[2018-08-14] MEDS: Albuterol/Ipratropium 3ml neb HHN SCH ×6 (03:02→23:06)
[2018-08-14 04:00] VITALS: BP 146/83
[2018-08-14 04:23] LABS: HEMATOCRIT 33.5 % (37.0-47.0); HEMOGLOBIN 10.6 G/DL (12.0-16.0); MEAN CORPUSCULAR VOLUME 91 FL (80-99); PLATELET COUNT 85 K/UL (150-450); RED BLOOD COUNT 3.66 M/UL (4.20-5.40); RED CELL DISTRIBUTION WIDTH 15.5 % (11.6-14.8); WHITE BLOOD COUNT 15.6 K/UL (4.8-10.8)
[2018-08-14 04:42] LABS: ANION GAP 11 mmol/L (5-15); BLOOD UREA NITROGEN 38 mg/dL (7-18); CALCIUM 8.5 MG/DL (8.5-10.1); CARBON DIOXIDE 26 MMOL/L (21-32); CHLORIDE 106 MMOL/L (98-107); CREATININE 1.8 MG/DL (0.55-1.30); POTASSIUM 4.7 MMOL/L (3.5-5.1); SODIUM 143 MMOL/L (136-145)
[2018-08-14] MEDS: Piperacillin/Tazobactam 3.375 GM in NS 110 ML IVPB SCH ×3 (05:24→21:10)
[2018-08-14] MEDS: NovoLOG Insulin Flexpen SUBQ SCH ×4 (05:33→20:41)
--- NOTE | 2018-08-14 05:42 | NUR ---
NURSE NOTES: blood sugar 170 and requires 3U- only 2U covered as pt. is NPO- pt. remains stable and no signs of distress noted.
--- NOTE | 2018-08-14 07:03 | NUR ---
HAND-OFF: Report given to redd RN, pt. remains stable and no signs of distress noted. heart rate 90 and pulse ox 94%.
--- NOTE | 2018-08-14 07:20 | NUR ---
NURSE NOTES: Received report from MARYSE Tam. Patient is resting in bed, in stable condition. Patient noted on BiPAP at ordered settings SpO2 96%. Observed no presence of pain or discomfort at this time. Bed is in lowest position, brakes engaged. Call light is kept within easy reach. Will continue to monitor patient.
[2018-08-14 08:00] VITALS: BP 124/48
--- NOTE | 2018-08-14 10:30 | Infectious Diseases Prog Note ---
Assessment/Plan Assessment/Plan antibiotics : vancomycin iv, zosyn A 1. pneumonia 2. respiratory failure 3. renal failure 4. leucocytosis 5. diabetes mellitus 6. hypertension P 1. continue zosyn 2. d/c vancomycin 3. will follow up cultures Subjective ROS Limited/Unobtainable: Yes Allergies: Coded Allergies: No Known Allergies (Unverified , 08/11/18) Objective Vital Signs Last 24 Hour Vital Signs Date Time Temp Pulse Resp B/P (MAP) Pulse Ox O2 Delivery O2 Flow Rate FiO2 08/14/18 08:50 99 36 97 Full Face 90 08/14/18 08:22 97 124/48 08/14/18 08:00 80 08/14/18 08:00 97.9 96 30 124/48 (73) 96 08/14/18 08:00 95 08/14/18 08:00 Bi-pap 08/14/18 07:28 94 27 95 Bi-pap 100 08/14/18 07:20 94 37 94 Bi-pap 100 08/14/18 07:20 94 37 94 Full Face 100 08/14/18 05:24 101 146/83 08/14/18 05:18 97 31 98 Full Face 70 08/14/18 04:00 80 08/14/18 04:00 Bi-pap 08/14/18 04:00 97.9 99 29 146/83 (104) 100 08/14/18 04:00 95 08/14/18 03:10 99 34 97 Bi-pap 80 08/14/18 03:04 96 34 98 Facial 80 08/14/18 03:02 96 34 97 Bi-pap 80 08/14/18 01:33 108 148/82 08/14/18 01:23 99 33 97 Facial 80 08/14/18 00:00 80 08/14/18 00:00 Bi-pap 08/14/18 00:00 97.8 103 30 148/76 (100) 98 08/14/18 00:00 101 08/13/18 23:09 98 36 94 Bi-pap 80 08/13/18 23:00 97 35 94 Bi-pap 80 08/13/18 22:58 98 35 94 Facial 80 08/13/18 21:50 97.9 108 26 129/63 (85) 100 08/13/18 21:17 120 147/85 08/13/18 21:16 107 25 99 Facial 80 08/13/18 21:00 100 08/13/18 21:00 100 08/13/18 20:00 50 08/13/18 20:00 50 08/13/18 20:00 124 08/13/18 20:00 97.7 120 22 154/84 (107) 98 08/13/18 20:00 Bi-pap 08/13/18 19:27 Bi-pap 50 08/13/18 19:27 Bi-pap 50 08/13/18 19:25 122 35 92 Facial 50 08/13/18 17:24 99.9 08/13/18 17:01 139 41 100 Facial 50 08/13/18 16:00 99.9 121 22 148/88 (108) 99 08/13/18 16:00 144 08/13/18 16:00 100 08/13/18 16:00 Bi-pap 08/13/18 15:34 150 152/84 08/13/18 15:00 Bi-pap 50 08/13/18 15:00 Bi-pap 50 08/13/18 15:00 100.6 144 08/13/18 14:59 150 44 96 Facial 50 08/13/18 13:48 143 40 94 Facial 40 08/13/18 12:05 Bi-pap 08/13/18 12:04 45 08/13/18 12:01 99.0 125 19 152/84 (106) 93 08/13/18 12:00 129 08/13/18 10:47 121 30 99 Bi-pap 40 08/13/18 10:38 120 32 97 Facial 45 08/13/18 10:36 122 31 96 Bi-pap 45 Height (Feet): 5 Height (Inches): 0.00 Weight (Pounds): 105 HEENT: other - on bipap Respiratory/Chest: rhonchi - bilaterally Cardiovascular: normal rate, regular rhythm, no gallop/murmur Abdomen: soft, non tender Extremities: other - + edema Microbiology Date/Time Source Procedure Growth Status 08/11/18 21:20 Blood Blood Culture - Preliminary NO GROWTH AFTER 48 HOURS Resulted 08/11/18 21:05 Blood Blood Culture - Preliminary NO GROWTH AFTER 48 HOURS Resulted 08/11/18 23:15 Nose MRSA Culture - Final NO METHICILLIN RESISTANT STAPH AUREUS... Complete 08/11/18 23:15 Rectum - Final NO CARBAPENEM-RESISTANT ENTEROBACTERI... Complete 08/11/18 23:15 Rectum VRE Culture - Final Enterococcus Faecium - Vre Complete Laboratory Tests Test 08/14/18 03:52 White Blood Count 15.6 K/UL (4.8-10.8) H Red Blood Count 3.66 M/UL (4.20-5.40) L Hemoglobin 10.6 G/DL (12.0-16.0) #L Hematocrit 33.5 % (37.0-47.0) #L Mean Corpuscular Volume 91 FL (80-99) Mean Corpuscular Hemoglobin 29.0 PG (27.0-31.0) Mean Corpuscular Hemoglobin Concent 31.7 G/DL (32.0-36.0) L Red Cell Distribution Width 15.5 % (11.6-14.8) H Platelet Count 85 K/UL (150-450) L Mean Platelet Volume 7.9 FL (6.5-10.1) Neutrophils (%) (Auto) % (45.0-75.0) Lymphocytes (%) (Auto) % (20.0-45.0) Monocytes (%) (Auto) % (1.0-10.0) Eosinophils (%) (Auto) % (0.0-3.0) Basophils (%) (Auto) % (0.0-2.0) Differential Total Cells Counted 100 Neutrophils % (Manual) 94 % (45-75) H Lymphocytes % (Manual) 3 % (20-45) L Monocytes % (Manual) 3 % (1-10) Eosinophils % (Manual) 0 % (0-3) Basophils % (Manual) 0 % (0-2) Band Neutrophils 0 % (0-8) Platelet Estimate Decreased L Platelet Morphology Normal Hypochromasia 1+ Anisocytosis 1+ Sodium Level 143 MMOL/L (136-145) Potassium Level 4.7 MMOL/L (3.5-5.1) Chloride Level 106 MMOL/L (98-107) Carbon Dioxide Level 26 MMOL/L (21-32) Anion Gap 11 mmol/L (5-15) Blood Urea Nitrogen 38 mg/dL (7-18) H Creatinine 1.8 MG/DL (0.55-1.30) H Estimat Glomerular Filtration Rate mL/min (>60) Glucose Level 198 MG/DL (74-106) H Calcium Level 8.5 MG/DL (8.5-10.1) Magnesium Level 2.4 MG/DL (1.8-2.4) Pro-B-Type Natriuretic Peptide > 34565 pg/mL (0-125) H Current Medications Medications (Trade) Dose Ordered Sig/Elida Route PRN Reason Start Time Stop Time Status Last Admin Dose Admin Acetaminophen (Tylenol) 650 mg Q6H PRN RECTAL Mild Pain/Temp > 100.5 08/13/18 14:45 09/12/18 14:44 08/13/18 14:54 Albuterol/ Ipratropium (Albuterol/ Ipratropium) 3 ml Q4HRT HHN 08/12/18 03:00 08/17/18 02:59 08/14/18 07:19 Dextrose (Dextrose 50%) 25 ml Q30M PRN IV Hypoglycemia 08/11/18 23:30 09/10/18 23:29 Dextrose (Dextrose 50%) 50 ml Q30M PRN IV Hypoglycemia 08/11/18 23:30 09/10/18 23:29 Furosemide (Lasix) 40 mg DAILY IV 08/14/18 09:00 09/13/18 08:59 08/14/18 08:21 Furosemide (Lasix) 40 mg ONCE PRN IV midway through transfusion 08/13/18 19:15 08/14/18 19:14 08/13/18 22:18 Insulin Aspart (NovoLOG) BEFORE MEALS AND HS SUBQ 08/12/18 06:30 09/11/18 06:29 08/14/18 05:33 Insulin Detemir (Levemir) 10 units BEDTIME SUBQ 08/13/18 22:30 09/12/18 22:29 Iopamidol (Isovue-300 100ml) 100 ml NOW PRN INJ Radiology Procedure 08/13/18 10:15 08/15/18 10:01 Metoprolol Tartrate 10 mg/ Dextrose 65 ml @ 130 mls/hr Q4HR IVPB 08/14/18 01:00 08/23/18 00:59 08/14/18 05:24 Pantoprazole (Protonix) 40 mg DAILY ORAL 08/12/18 09:00 09/11/18 08:59 08/12/18 09:20 Piperacillin Sod/ Tazobactam Sod 3.375 gm/Sodium Chloride 110 ml @ 27.5 mls/hr EVERY 8 HOURS IVPB 08/12/18 06:00 08/19/18 05:59 08/14/18 05:24 Vancomycin HCl (Vanco rx to dose) 1 ea DAILY PRN MISC Per rx protocol 08/11/18 23:30 09/10/18 23:29 Vancomycin HCl 500 mg/Dextrose 110 ml @ 110 mls/hr Q24H IVPB 08/12/18 23:00 08/17/18 22:59 08/13/18 23:23 Fátima Sheldon MD Aug 14, 2018 10:30
--- NOTE | 2018-08-14 11:03 | General Progress Note ---
Assessment/Plan Problem List: (1) Dyspnea ICD Codes: R06.00 - Dyspnea, unspecified SNOMED: 464473295 (2) Respiratory distress ICD Codes: R06.03 - Acute respiratory distress SNOMED: 685012520 (3) COPD (chronic obstructive pulmonary disease) ICD Codes: J44.9 - Chronic obstructive pulmonary disease, unspecified SNOMED: 36493786 (4) Pneumonitis ICD Codes: J18.9 - Pneumonia, unspecified organism SNOMED: 358335598 (5) Respiratory failure ICD Codes: J96.90 - Respiratory failure, unspecified, unspecified whether with hypoxia or hypercapnia SNOMED: 964762562 Status: stable, not improved Assessment/Plan iv abx resp rx bipap monitor abg follow up cultures transfuse as needed checks tool ob ct chest when stable critical and guarded dnr Subjective ROS Limited/Unobtainable: No Constitutional: Reports: malaise, weakness HEENT: Reports: no symptoms Cardiovascular: Reports: no symptoms Respiratory: Reports: shortness of breath, sputum Gastrointestinal/Abdominal: Reports: difficulty swallowing Genitourinary: Reports: no symptoms Neurologic/Psychiatric: Reports: pre-existing deficit Endocrine: Reports: no symptoms Hematologic/Lymphatic: Reports: anemia Allergies: Coded Allergies: No Known Allergies (Unverified , 08/11/18) All Systems: reviewed and negative except above Subjective remains congested. + cough. +sob. remains on bipap. no fevers. no bleeding. not any better Objective Last 24 Hour Vital Signs Date Time Temp Pulse Resp B/P (MAP) Pulse Ox O2 Delivery O2 Flow Rate FiO2 08/14/18 08:50 99 36 97 Full Face 90 08/14/18 08:22 97 124/48 08/14/18 08:00 80 08/14/18 08:00 97.9 96 30 124/48 (73) 96 08/14/18 08:00 95 08/14/18 08:00 Bi-pap 08/14/18 07:28 94 27 95 Bi-pap 100 08/14/18 07:20 94 37 94 Bi-pap 100 08/14/18 07:20 94 37 94 Full Face 100 08/14/18 05:24 101 146/83 08/14/18 05:18 97 31 98 Full Face 70 08/14/18 04:00 80 08/14/18 04:00 Bi-pap 08/14/18 04:00 97.9 99 29 146/83 (104) 100 08/14/18 04:00 95 08/14/18 03:10 99 34 97 Bi-pap 80 08/14/18 03:04 96 34 98 Facial 80 08/14/18 03:02 96 34 97 Bi-pap 80 08/14/18 01:33 108 148/82 08/14/18 01:23 99 33 97 Facial 80 08/14/18 00:00 80 08/14/18 00:00 Bi-pap 08/14/18 00:00 97.8 103 30 148/76 (100) 98 08/14/18 00:00 101 08/13/18 23:09 98 36 94 Bi-pap 80 08/13/18 23:00 97 35 94 Bi-pap 80 08/13/18 22:58 98 35 94 Facial 80 08/13/18 21:50 97.9 108 26 129/63 (85) 100 08/13/18 21:17 120 147/85 08/13/18 21:16 107 25 99 Facial 80 08/13/18 21:00 100 08/13/18 21:00 100 08/13/18 20:00 50 08/13/18 20:00 50 08/13/18 20:00 124 08/13/18 20:00 97.7 120 22 154/84 (107) 98 08/13/18 20:00 Bi-pap 08/13/18 19:27 Bi-pap 50 08/13/18 19:27 Bi-pap 50 08/13/18 19:25 122 35 92 Facial 50 08/13/18 17:24 99.9 08/13/18 17:01 139 41 100 Facial 50 08/13/18 16:00 99.9 121 22 148/88 (108) 99 08/13/18 16:00 144 08/13/18 16:00 100 08/13/18 16:00 Bi-pap 08/13/18 15:34 150 152/84 08/13/18 15:00 Bi-pap 50 08/13/18 15:00 Bi-pap 50 08/13/18 15:00 100.6 144 08/13/18 14:59 150 44 96 Facial 50 08/13/18 13:48 143 40 94 Facial 40 08/13/18 12:05 Bi-pap 08/13/18 12:04 45 08/13/18 12:01 99.0 125 19 152/84 (106) 93 08/13/18 12:00 129 Intake and Output 08/13/18 08/14/18 19:00 07:00 Intake Total 0 ml 572.5 ml Output Total 700 ml 375 ml Balance -700 ml 197.5 ml Intake Oral 0 ml IV Total 572.5 ml Output Urine Total 700 ml 375 ml # Voids 2 # Bowel Movements 1 Laboratory Tests 08/14/18 03:52: White Blood Count 15.6H, Red Blood Count 3.66L, Hemoglobin 10.6#L, Hematocrit 33.5#L, Mean Corpuscular Volume 91, Mean Corpuscular Hemoglobin 29.0, Mean Corpuscular Hemoglobin Concent 31.7L, Red Cell Distribution Width 15.5H, Platelet Count 85L, Mean Platelet Volume 7.9, Neutrophils (%) (Auto) , Lymphocytes (%) (Auto) , Monocytes (%) (Auto) , Eosinophils (%) (Auto) , Basophils (%) (Auto) , Differential Total Cells Counted 100, Neutrophils % ( Manual) 94H, Lymphocytes % (Manual) 3L, Monocytes % (Manual) 3, Eosinophils % ( Manual) 0, Basophils % (Manual) 0, Band Neutrophils 0, Platelet Estimate DecreasedL, Platelet Morphology Normal, Hypochromasia 1+, Anisocytosis 1+, Sodium Level 143, Potassium Level 4.7, Chloride Level 106, Carbon Dioxide Level 26, Anion Gap 11, Blood Urea Nitrogen 38H, Creatinine 1.8H, Estimat Glomerular Filtration Rate , Glucose Level 198H, Calcium Level 8.5, Magnesium Level 2.4, Pro-B-Type Natriuretic Peptide > 02536N Height (Feet): 5 Height (Inches): 0.00 Weight (Pounds): 105 General Appearance: WD/WN, lethargic, confused Neck: supple Cardiovascular: normal rate, regular rhythm Respiratory/Chest: crackles/rales, rhonchi - bilaterally Abdomen: normal bowel sounds, non tender, soft, no organomegaly Edema: no edema noted Arm (L), no edema noted Arm (R), no edema noted Leg (L), no edema noted Leg (R), no edema noted Pedal (L), no edema noted Pedal (R), no edema noted Generalized Neurologic: disoriented, unresponsive, aphasia Doug Kaur MD Aug 14, 2018 11:03
[2018-08-14 12:00] VITALS: BP 128/59
--- NOTE | 2018-08-14 14:30 | NUR ---
NURSE NOTES: Patient currently on Bipap 15/5 FiO2 100%, attempted to place patient on venturi mask 55% FiO2, patient did not tolerated, noted SOB, SpO2 80%; placed patient back on BiPAP PRN as ordered, notified, Dr. Henny GONZALES acknowledged and ordered chest x-ray and informed this nurse that Dr. Mcdaniels is covering him this weekend. Noted. Orders entered, noted, and carried out. Will continue to monitor patient.
[2018-08-14 16:00] VITALS: BP 135/70
--- NOTE | 2018-08-14 16:10 | Diagnostic Imaging Report ---
EXAM: XR Chest, 1 View CLINICAL HISTORY: SOB TECHNIQUE: Frontal view of the chest. COMPARISON: August 13, 2018 chest x-ray FINDINGS: Lungs: Bilateral interstitial and airspace opacities remain present, slightly more confluent of the right lung base caring the right diaphragm. Pleural space: No pneumothorax. Probable trace pleural effusions. Heart: Similar-appearing borderline cardiac enlargement. Mediastinum: Mediastinal contours are unremarkable allowing for patient rotation and positioning. Bones/joints: Unremarkable. IMPRESSION: Bilateral airspace opacities, slightly more confluent at the right lung base.
--- NOTE | 2018-08-14 17:50 | Pulmonology Progress Note ---
Assessment/Plan Assessment/Plan Assessment/Plan 1. Acute respiratory failure, requiring BiPAP, not improved. pt is DNI 2. Sepsis. 3. Extensive bilateral pneumonia. 4. Congestive heart failure. 5. Diabetes. 6. Hypertension. continue on bipap pt is DNR per .diureses as bp adn renal function will toelrate nebs and suction anemia worse - transfuse cont abx serology CT when able prognosis guarded dw family at the beside 35 min CC T spent revieweing the chart, labs, images and notes, dw family and nursing and disucss plan I risk of respiratory failure with current pulmonary status Subjective ROS Limited/Unobtainable: Yes Allergies: Coded Allergies: No Known Allergies (Unverified , 08/11/18) Subjective obtunded on bipap 15/5 TV around 160 cc RR 40's pt is DNI moderate distress no bleeding NPO Objective Last 24 Hour Vital Signs Date Time Temp Pulse Resp B/P (MAP) Pulse Ox O2 Delivery O2 Flow Rate FiO2 08/14/18 17:20 103 34 96 Facial 100 08/14/18 16:00 100 08/14/18 16:00 104 08/14/18 16:00 Bi-pap 08/14/18 16:00 99.0 99 30 135/70 (91) 97 08/14/18 15:46 98 33 97 Bi-pap 100 08/14/18 15:38 99 32 97 Facial 100 08/14/18 15:38 99 32 97 Bi-pap 100 08/14/18 14:17 96 32 94 Full Face 100 08/14/18 13:34 97 08/14/18 12:16 101 128/59 08/14/18 12:00 99.1 101 30 128/59 (82) 96 08/14/18 12:00 100 08/14/18 12:00 Bi-pap 08/14/18 11:41 96 27 95 Bi-pap 100 08/14/18 11:30 96 35 95 Bi-pap 100 08/14/18 11:15 93 35 93 Full Face 100 08/14/18 11:15 93 35 93 Bi-pap 100 08/14/18 08:50 99 36 97 Full Face 90 08/14/18 08:22 97 124/48 08/14/18 08:00 80 08/14/18 08:00 97.9 96 30 124/48 (73) 96 08/14/18 08:00 95 08/14/18 08:00 Bi-pap 08/14/18 07:28 94 27 95 Bi-pap 100 08/14/18 07:20 94 37 94 Bi-pap 100 08/14/18 07:20 94 37 94 Full Face 100 08/14/18 05:24 101 146/83 08/14/18 05:18 97 31 98 Full Face 70 08/14/18 04:00 80 08/14/18 04:00 Bi-pap 08/14/18 04:00 97.9 99 29 146/83 (104) 100 08/14/18 04:00 95 08/14/18 03:10 99 34 97 Bi-pap 80 08/14/18 03:04 96 34 98 Facial 80 08/14/18 03:02 96 34 97 Bi-pap 80 08/14/18 01:33 108 148/82 08/14/18 01:23 99 33 97 Facial 80 08/14/18 00:00 80 08/14/18 00:00 Bi-pap 08/14/18 00:00 97.8 103 30 148/76 (100) 98 08/14/18 00:00 101 08/13/18 23:09 98 36 94 Bi-pap 80 08/13/18 23:00 97 35 94 Bi-pap 80 08/13/18 22:58 98 35 94 Facial 80 08/13/18 21:50 97.9 108 26 129/63 (85) 100 08/13/18 21:17 120 147/85 08/13/18 21:16 107 25 99 Facial 80 08/13/18 21:00 100 08/13/18 21:00 100 08/13/18 20:00 50 08/13/18 20:00 50 08/13/18 20:00 124 08/13/18 20:00 97.7 120 22 154/84 (107) 98 08/13/18 20:00 Bi-pap 08/13/18 19:27 Bi-pap 50 08/13/18 19:27 Bi-pap 50 08/13/18 19:25 122 35 92 Facial 50 Intake and Output 08/13/18 08/14/18 19:00 07:00 Intake Total 0 ml 572.5 ml Output Total 700 ml 375 ml Balance -700 ml 197.5 ml Intake Oral 0 ml IV Total 572.5 ml Output Urine Total 700 ml 375 ml # Voids 2 # Bowel Movements 1 General Appearance: cachetic Respiratory/Chest: rhonchi Cardiovascular: tachycardia, edema Abdomen: soft, non tender, no organomegaly Neurologic/Psychiatric: disoriented, unresponsiveness Microbiology Date/Time Source Procedure Growth Status 08/11/18 21:20 Blood Blood Culture - Preliminary NO GROWTH AFTER 48 HOURS Resulted 08/11/18 21:05 Blood Blood Culture - Preliminary NO GROWTH AFTER 48 HOURS Resulted 08/11/18 23:15 Nose MRSA Culture - Final NO METHICILLIN RESISTANT STAPH AUREUS... Complete 08/11/18 23:15 Rectum - Final NO CARBAPENEM-RESISTANT ENTEROBACTERI... Complete 08/11/18 23:15 Rectum VRE Culture - Final Enterococcus Faecium - Vre Complete Laboratory Tests 08/14/18 03:52: White Blood Count 15.6H, Red Blood Count 3.66L, Hemoglobin 10.6#L, Hematocrit 33.5#L, Mean Corpuscular Volume 91, Mean Corpuscular Hemoglobin 29.0, Mean Corpuscular Hemoglobin Concent 31.7L, Red Cell Distribution Width 15.5H, Platelet Count 85L, Mean Platelet Volume 7.9, Neutrophils (%) (Auto) , Lymphocytes (%) (Auto) , Monocytes (%) (Auto) , Eosinophils (%) (Auto) , Basophils (%) (Auto) , Differential Total Cells Counted 100, Neutrophils % ( Manual) 94H, Lymphocytes % (Manual) 3L, Monocytes % (Manual) 3, Eosinophils % ( Manual) 0, Basophils % (Manual) 0, Band Neutrophils 0, Platelet Estimate DecreasedL, Platelet Morphology Normal, Hypochromasia 1+, Anisocytosis 1+, Sodium Level 143, Potassium Level 4.7, Chloride Level 106, Carbon Dioxide Level 26, Anion Gap 11, Blood Urea Nitrogen 38H, Creatinine 1.8H, Estimat Glomerular Filtration Rate , Glucose Level 198H, Calcium Level 8.5, Magnesium Level 2.4, Pro-B-Type Natriuretic Peptide > 35028G Current Medications Medications (Trade) Dose Ordered Sig/Elida Route PRN Reason Start Time Stop Time Status Last Admin Dose Admin Acetaminophen (Tylenol) 650 mg Q6H PRN RECTAL Mild Pain/Temp > 100.5 08/13/18 14:45 09/12/18 14:44 08/13/18 14:54 Albuterol/ Ipratropium (Albuterol/ Ipratropium) 3 ml Q4HRT HHN 08/12/18 03:00 08/17/18 02:59 08/14/18 15:38 Dextrose (Dextrose 50%) 25 ml Q30M PRN IV Hypoglycemia 08/11/18 23:30 09/10/18 23:29 Dextrose (Dextrose 50%) 50 ml Q30M PRN IV Hypoglycemia 08/11/18 23:30 09/10/18 23:29 Furosemide (Lasix) 40 mg DAILY IV 08/14/18 09:00 09/13/18 08:59 08/14/18 08:21 Furosemide (Lasix) 40 mg ONCE PRN IV midway through transfusion 08/13/18 19:15 08/14/18 19:14 08/13/18 22:18 Insulin Aspart (NovoLOG) BEFORE MEALS AND HS SUBQ 08/12/18 06:30 09/11/18 06:29 08/14/18 12:19 Insulin Detemir (Levemir) 10 units BEDTIME SUBQ 08/13/18 22:30 09/12/18 22:29 Iopamidol (Isovue-300 100ml) 100 ml NOW PRN INJ Radiology Procedure 08/13/18 10:15 08/15/18 10:01 Metoprolol Tartrate 10 mg/ Dextrose 65 ml @ 130 mls/hr Q4HR IVPB 08/14/18 01:00 08/23/18 00:59 08/14/18 12:16 Pantoprazole (Protonix) 40 mg DAILY ORAL 08/12/18 09:00 09/11/18 08:59 08/12/18 09:20 Piperacillin Sod/ Tazobactam Sod 3.375 gm/Sodium Chloride 110 ml @ 27.5 mls/hr EVERY 8 HOURS IVPB 08/12/18 06:00 08/19/18 05:59 08/14/18 13:28 Marika Mcdaniels DO Aug 14, 2018 17:50
--- NOTE | 2018-08-14 18:30 | NUR ---
NURSE NOTES: Dr. Mcdaniels seen and examined patient. Made MD aware of patient not tolerating Venturi Mask, had SOB and SpO2 of 80%. Informed Dr. Mcdaniels of current situation, pt on BiPAP 15/5 FiO2 100% RR 40. Dr. Mcdaniels acknowledged, MD aware of DNR/DNI code status and POLST. Dr. Mcdaniels acknowledged, no new orders given at this time. Dr. Mcdaniels spoke with family at bedside. Noted. Will continue to monitor patient.
--- NOTE | 2018-08-14 19:13 | NUR ---
RESPIRATORY NOTE: Received pt. on BIPAP. BIPAP settings are: 15/5, PS 10, rate of 20, FI02 100%. BIPAP plugged on red outlet. Will continue to monitor pt.
[2018-08-14 19:21] LABS: APPEARANCE,URINE CLEAR; BILIRUBIN, URINE NEGATIVE (NEGATIVE); COLOR,URINE PALE YELLOW; GLUCOSE, URINE (UA) NEGATIVE (NEGATIVE); KETONES,URINE NEGATIVE (NEGATIVE); LEUKOCYTE ESTERASE ,URINE NEGATIVE (NEGATIVE); NITRITE,URINE NEGATIVE (NEGATIVE); PH,URINE 5 (4.5-8.0); PROTEIN,URINE 2+ (NEGATIVE); UROBILINOGEN,URINE NORMAL MG/DL (0.0-1.0)
--- NOTE | 2018-08-14 19:30 | NUR ---
HAND-OFF: Report given to MARYSE Tam.
--- NOTE | 2018-08-14 19:30 | NUR ---
NURSE NOTES: Received report from Adrian RN, pt. in bed awake, family at bedside, pt. Alert to name, no signs or symptoms of acute cardiac or respiratory distress noted, bed in lowest position and call light within easy reach, bed alarm on, side rails up x's3 and safety brakes engaged, pt. has cardiac monitoring on, Pt. appears to be sating well on BIPAP 15/5 FIO2 at 100%- no distress noted, pt. comfort measures provided, oral care provided, RFA IV 20G- IV intact and patent, will continue to monitor pt. and with plan of care, safety measures continued.
[2018-08-14 20:00] VITALS: BP 106/48
[2018-08-14] MEDS: Levemir Flexpen SUBQ SCH (20:41)
--- NOTE | 2018-08-14 20:50 | NUR ---
NURSE NOTES: Received report from Adrian SERRA, pt. in bed awake, family at bedside, pt. Alert to name, no signs or symptoms of acute cardiac or respiratory distress noted, bed in lowest position and call light within easy reach, bed alarm on, side rails up x's3 and safety brakes engaged, pt. has cardiac monitoring on, Pt. appears to be sating well on BIPAP 15/5 FIO2 at 100%- no distress noted, pt. comfort measures provided, oral care provided, RFA IV 20G- IV intact and patent, will continue to monitor pt. and with plan of care, safety measures continued. Addendum: 08/14/18 at 2055 by LAURENCE BUCHANAN RN RN correction to message above report received at 1930pm.
[2018-08-15] VITALS: BP 106/45
--- NOTE | 2018-08-15 00:15 | Progress Note ---
DATE: 08/14/2018 CARDIOLOGY PROGRESS NOTE SUBJECTIVE: The patient is seen and evaluated at bedside. Family members were present and current status discussed in detail. The patient's condition has not improved. She continues to have severe respiratory distress on BiPAP support and unable to tolerate oral intake as a result of desaturation off the BiPAP. The patient had a chest x-ray again today, which revealed bilateral airspace disease unchanged. Her natriuretic peptide levels remained quite elevated. She has been transfused packed red blood cells yesterday with concomitant diuresis. OBJECTIVE: VITAL SIGNS: Blood pressure 135/70, temperature 99, heart rate 99, and respiratory rate 30 to 33. LUNGS: Bilateral rales. Accessory muscle use. HEART: Regular rhythm. Rapid rate. Normal S1, S2. ABDOMEN: Soft. Paradoxical respiratory motion noted. No edema. LABORATORY DATA: Cultures remained negative. White count 15.6, hemoglobin 10.6. Magnesium is 2.4, BUN 38, creatinine 1.8, and potassium 4.7. IMPRESSION: 1. Bilateral healthcare-acquired pneumonia. 2. Recent Pseudomonas pneumonia. 3. Worsening renal failure with diuresis. 4. Acute on chronic diastolic congestive heart failure. 5. Chronic anemia. 6. Type 2 diabetes mellitus with hyperglycemia. 7. Leukocytosis. 8. Sepsis. 9. Bronchospastic lung disease. PLAN: 1. BiPAP support. 2. Antimicrobials. 3. Respiratory hygiene. 4. DVT prophylaxis. 5. Diuresis. 6. Efforts as tolerated by renal parameters. 7. Avoid nephrotoxins. 8. DNR. 9. BiPAP support. 10. Family considering NG-tube. 11. Family aware of critical condition and guarded prognosis. Willian Hobson M.D. DR: ISAMAR JOB#: [id number] CC:
--- NOTE | 2018-08-15 00:30 | NUR ---
NURSE NOTES: pt. desating to mid 80's- pt. remains on BIPAP 15/5 at 100%- comfort measures provided, family at bedside- and aware of patients conditions- all needs met.
[2018-08-15] MEDS: Metoprolol Tartrate 10 MG in D5W 55 ML IVPB SCH ×3 (00:45→09:00)
--- NOTE | 2018-08-15 01:45 | NUR ---
NURSE NOTES: patients trending down to 75% on BiPAP 15/5 and fio2 @100%- family at bedside with patient - pt. is DNR/DNI. VS 98.8, pulse 91, b/p 105/56, respirations 33 pulse ox 76%- Comfort measures continued and will continue to monitor patient and with plan of care.
[2018-08-15] MEDS: Albuterol/Ipratropium 3ml neb HHN SCH ×2 (03:00→07:12)
[2018-08-15 04:00] VITALS: BP 68/39
--- NOTE | 2018-08-15 04:06 | NUR ---
NURSE NOTES: family refused to have ABGS done- just wants comfort measures provided for patient. Family at bedside- pt. still sating in 70"s at 74%- patients heart rate is 92, respirations trending up now 42 - comfort measures provided will continue to monitor patient and with plan of care.
--- NOTE | 2018-08-15 04:07 | NUR ---
RESPIRATORY NOTE: ABG was ordered at 4am, when family was told about the blood draw, they refused. MARYSE mondragon.
[2018-08-15 04:42] VITALS: BP 100/58
--- NOTE | 2018-08-15 04:47 | NUR ---
NURSE NOTES: pulse ox trending down to 68%- Family aware and remains at bedside, pt. is DNR /DNI- comfort measures provided and continued. Will continue to monitor pt. and with plan of care.
--- NOTE | 2018-08-15 05:00 | NUR ---
NURSE NOTES: Family refusing morning antibiotics and blood sugar check- just wants to continue with comfort measures for patient- B/P now trending down to 70/34, pulse 83, resp 34 and pulse ox 69- Family aware.. Will continue to monitor patient and with plan of care.
[2018-08-15] MEDS: Piperacillin/Tazobactam 3.375 GM in NS 110 ML IVPB SCH (05:06)
[2018-08-15] MEDS: NovoLOG Insulin Flexpen SUBQ SCH (05:31)
--- NOTE | 2018-08-15 05:31 | NUR ---
NURSE NOTES: family refused blood sugar check-would like to continue with comfort measures for patient.
--- NOTE | 2018-08-15 06:54 | NUR ---
HAND-OFF: Report given to Adrian RN, pt. remains stable and no signs of distress noted. Pt. continues with BIPAP setting at 15/5 fio2 at 100%- sating at 74%, pulse 90, and resp 34, family at bedside and would like to continue with comfort measures.
--- NOTE | 2018-08-15 07:00 | Pulmonology Progress Note ---
Assessment/Plan Assessment/Plan Assessment/Plan 1. Acute respiratory failure, requiring BiPAP, not improved. pt is DNI 2. Sepsis. 3. Extensive bilateral pneumonia. 4. Congestive heart failure. 5. Diabetes. 6. Hypertension. PLAN slightly improved mechanics on bipap pt is DNR per diureses as bp adn renal function will tolerate nebs and suction anemia worse - transfuse cont abx serology CT when able prognosis guarded dw family at the beside 35 min CC T spent reviewing the chart, labs, images and notes, dw family and nursing and discuss plan I risk of respiratory failure with current pulmonary status Subjective ROS Limited/Unobtainable: Yes Allergies: Coded Allergies: No Known Allergies (Unverified , 08/11/18) Subjective obtunded on bipap 15/5 TV around 400 cc RR mid 30's pt is DNI moderate distress family at the bedside no bleeding NPO Objective Last 24 Hour Vital Signs Date Time Temp Pulse Resp B/P (MAP) Pulse Ox O2 Delivery O2 Flow Rate FiO2 08/15/18 05:30 114 40 86 Facial 100 08/15/18 04:42 92 100/58 08/15/18 04:00 Bi-pap 08/15/18 04:00 91 08/15/18 04:00 100 08/15/18 04:00 100.1 70 35 68/39 (49) 69 08/15/18 03:29 103 43 85 Facial 100 08/15/18 03:12 Bi-pap 08/15/18 03:12 Bi-pap 08/15/18 01:09 99.8 08/15/18 01:09 99.8 08/15/18 00:53 111 43 85 Facial 100 08/15/18 00:45 98 106/45 08/15/18 00:00 100 08/15/18 00:00 100.9 117 32 106/45 (65) 95 08/15/18 00:00 Bi-pap 08/15/18 00:00 112 08/14/18 23:22 110 41 91 Bi-pap 100 08/14/18 23:08 104 44 90 Facial 100 08/14/18 23:06 104 44 90 Bi-pap 100 08/14/18 21:31 103 41 93 Facial 100 08/14/18 20:44 82 106/48 08/14/18 20:00 100 08/14/18 20:00 99.8 99 30 106/48 (67) 94 08/14/18 20:00 94 08/14/18 20:00 Bi-pap 08/14/18 19:17 94 40 94 Bi-pap 100 08/14/18 19:09 93 39 95 Facial 100 08/14/18 19:08 93 39 94 Bi-pap 100 08/14/18 18:12 104 135/70 08/14/18 17:20 103 34 96 Facial 100 08/14/18 16:00 100 08/14/18 16:00 104 08/14/18 16:00 Bi-pap 08/14/18 16:00 99.0 99 30 135/70 (91) 97 08/14/18 15:46 98 33 97 Bi-pap 100 08/14/18 15:38 99 32 97 Facial 100 08/14/18 15:38 99 32 97 Bi-pap 100 08/14/18 14:17 96 32 94 Full Face 100 08/14/18 13:34 97 08/14/18 12:16 101 128/59 08/14/18 12:00 99.1 101 30 128/59 (82) 96 08/14/18 12:00 100 08/14/18 12:00 Bi-pap 08/14/18 11:41 96 27 95 Bi-pap 100 08/14/18 11:30 96 35 95 Bi-pap 100 08/14/18 11:15 93 35 93 Full Face 100 08/14/18 11:15 93 35 93 Bi-pap 100 08/14/18 08:50 99 36 97 Full Face 90 08/14/18 08:22 97 124/48 08/14/18 08:00 80 08/14/18 08:00 97.9 96 30 124/48 (73) 96 08/14/18 08:00 95 08/14/18 08:00 Bi-pap 08/14/18 07:28 94 27 95 Bi-pap 100 08/14/18 07:20 94 37 94 Bi-pap 100 08/14/18 07:20 94 37 94 Full Face 100 Intake and Output 08/14/18 08/15/18 19:00 07:00 Intake Total 110.0 ml Output Total 200 ml 0 ml Balance -200 ml 110.0 ml IV Total 110.0 ml Output Urine Total 200 ml 0 ml General Appearance: cachetic Respiratory/Chest: respiratory distress, rhonchi Cardiovascular: normal rate, regular rhythm Abdomen: no organomegaly, non distended Neurologic/Psychiatric: disoriented Musculoskeletal: no effusion Laboratory Tests 08/14/18 18:30: Urine Color Pale yellow, Urine Appearance Clear, Urine pH 5, Urine Specific Adams 1.020, Urine Protein 2+H, Urine Glucose (UA) Negative, Urine Ketones Negative, Urine Blood Negative, Urine Nitrite Negative, Urine Bilirubin Negative , Urine Urobilinogen Normal, Urine Leukocyte Esterase Negative, Urine RBC 0-2, Urine WBC 0-2, Urine Squamous Epithelial Cells None, Urine Amorphous Sediment FewH, Urine Bacteria None Current Medications Medications (Trade) Dose Ordered Sig/Elida Route PRN Reason Start Time Stop Time Status Last Admin Dose Admin Acetaminophen (Tylenol) 650 mg Q6H PRN RECTAL Mild Pain/Temp > 100.5 08/13/18 14:45 09/12/18 14:44 08/15/18 00:39 Albuterol/ Ipratropium (Albuterol/ Ipratropium) 3 ml Q4HRT HHN 08/12/18 03:00 08/17/18 02:59 08/14/18 23:06 Dextrose (Dextrose 50%) 25 ml Q30M PRN IV Hypoglycemia 08/11/18 23:30 09/10/18 23:29 Dextrose (Dextrose 50%) 50 ml Q30M PRN IV Hypoglycemia 08/11/18 23:30 09/10/18 23:29 Furosemide (Lasix) 40 mg DAILY IV 08/14/18 09:00 09/13/18 08:59 08/14/18 08:21 Insulin Aspart (NovoLOG) BEFORE MEALS AND HS SUBQ 08/12/18 06:30 09/11/18 06:29 08/14/18 12:19 Insulin Detemir (Levemir) 10 units BEDTIME SUBQ 08/13/18 22:30 09/12/18 22:29 Iopamidol (Isovue-300 100ml) 100 ml NOW PRN INJ Radiology Procedure 08/13/18 10:15 08/15/18 10:01 Metoprolol Tartrate 10 mg/ Dextrose 65 ml @ 130 mls/hr Q4HR IVPB 08/14/18 01:00 08/23/18 00:59 08/14/18 18:12 Pantoprazole (Protonix) 40 mg DAILY ORAL 08/12/18 09:00 09/11/18 08:59 08/12/18 09:20 Piperacillin Sod/ Tazobactam Sod 3.375 gm/Sodium Chloride 110 ml @ 27.5 mls/hr EVERY 8 HOURS IVPB 08/12/18 06:00 08/19/18 05:59 08/14/18 21:10 Marika Mcdaniels 17, 2019 07:00
--- NOTE | 2018-08-15 07:14 | NUR ---
NURSE NOTES: Received report from MARYSE Tam. Patient is resting in bed. No SOB noted at this time. BiPAP is in prescribed orders. Observed no presence of pain or discomfort at this time. Bed is in lowest position, brakes engaged. Call light is kept within easy reach. Will continue to monitor patient. Addendum: 08/15/18 at 0787 by ROEL POSADAS RN NURSE NOTES: Per night stocker RN report, patient family is refusing medications and lab draws. Noted. Will continue to monitor patient.
--- NOTE | 2018-08-15 08:50 | NUR ---
NURSE NOTES: Dr. Kaur at nurse station, informed Dr. Kaur that patient's family is refusing medications and lab works. Dr. Kaur acknowledged, no new orders given at this time. Also informed Dr. Kaur that recent blood pressure is 64/28. Dr. Kaur acknowledged, no new orders given at this time. Patient noted to be DNR/DNI code status. Will continue to monitor patient.
--- NOTE | 2018-08-15 10:25 | NUR ---
NURSE NOTES: Patient DNR/DNI. Time of called by house nurse screw supervisor, Genny, time of called at 1025. Contacted Dr. Hobson and Dr. Kaur of situation. Charge nurse aware.
--- NOTE | 2018-08-15 10:30 | NUR ---
NURSE NOTES: Family request that dentures stay on with the patient. Noted.
--- NOTE | 2018-08-15 10:37 | NUR ---
PRONOUNCEMENT: No Code. Called to pronounce patient. Absence of spontaneous respirations, no cardiac or breath sounds on auscultation. Pupils fixed and dilated. No carotid pulse or chest movement. Patient at 1025. DR Kaur notified PER Adrian Lopez RN Family was notified at 1025
--- NOTE | 2018-08-15 10:42 | NUR ---
NURSE NOTES: Called [facility]. Spoke with home office representative. Documentation in paper chart. Given to Nurse Nursery School Attendant.
--- NOTE | 2018-08-15 11:05 | General Progress Note ---
Assessment/Plan Problem List: (1) Dyspnea ICD Codes: R06.00 - Dyspnea, unspecified SNOMED: 393526434 (2) Respiratory distress ICD Codes: R06.03 - Acute respiratory distress SNOMED: 132648126 (3) COPD (chronic obstructive pulmonary disease) ICD Codes: J44.9 - Chronic obstructive pulmonary disease, unspecified SNOMED: 62860455 (4) Pneumonitis ICD Codes: J18.9 - Pneumonia, unspecified organism SNOMED: 570035810 (5) Respiratory failure ICD Codes: J96.90 - Respiratory failure, unspecified, unspecified whether with hypoxia or hypercapnia SNOMED: 224151886 Status: not improved, deteriorating Assessment/Plan bipap resp care consider morphine drip terminal family has no questions Subjective Time patient seen: 07:30 ROS Limited/Unobtainable: Yes Constitutional: Reports: malaise, weakness HEENT: Reports: no symptoms Cardiovascular: Reports: no symptoms Respiratory: Reports: shortness of breath Gastrointestinal/Abdominal: Reports: no symptoms Genitourinary: Reports: no symptoms Neurologic/Psychiatric: Reports: pre-existing deficit Endocrine: Reports: no symptoms Hematologic/Lymphatic: Reports: no symptoms Allergies: Coded Allergies: No Known Allergies (Unverified , 08/11/18) All Systems: reviewed and negative except above Subjective on bipap. family at the bedside. refusing all rx except bipap. family wants comfort focused care Objective Last 24 Hour Vital Signs Date Time Temp Pulse Resp B/P (MAP) Pulse Ox O2 Delivery O2 Flow Rate FiO2 08/15/18 09:29 59 32 75 Facial 100 08/15/18 08:00 Bi-pap 08/15/18 08:00 80 08/15/18 08:00 100 08/15/18 07:22 80 40 77 Bi-pap 100 08/15/18 07:11 79 40 75 Bi-pap 100 08/15/18 07:10 81 35 75 Facial 100 08/15/18 05:30 114 40 86 Facial 100 08/15/18 04:42 92 100/58 08/15/18 04:00 Bi-pap 08/15/18 04:00 91 08/15/18 04:00 100 08/15/18 04:00 100.1 70 35 68/39 (49) 69 08/15/18 03:29 103 43 85 Facial 100 08/15/18 03:12 Bi-pap 08/15/18 03:12 Bi-pap 08/15/18 01:09 99.8 08/15/18 01:09 99.8 08/15/18 00:53 111 43 85 Facial 100 08/15/18 00:45 98 106/45 08/15/18 00:00 100 08/15/18 00:00 100.9 117 32 106/45 (65) 95 08/15/18 00:00 Bi-pap 08/15/18 00:00 112 08/14/18 23:22 110 41 91 Bi-pap 100 08/14/18 23:08 104 44 90 Facial 100 08/14/18 23:06 104 44 90 Bi-pap 100 08/14/18 21:31 103 41 93 Facial 100 08/14/18 20:44 82 106/48 08/14/18 20:00 100 08/14/18 20:00 99.8 99 30 106/48 (67) 94 08/14/18 20:00 94 08/14/18 20:00 Bi-pap 08/14/18 19:17 94 40 94 Bi-pap 100 08/14/18 19:09 93 39 95 Facial 100 08/14/18 19:08 93 39 94 Bi-pap 100 08/14/18 18:12 104 135/70 08/14/18 17:20 103 34 96 Facial 100 08/14/18 16:00 100 08/14/18 16:00 104 08/14/18 16:00 Bi-pap 08/14/18 16:00 99.0 99 30 135/70 (91) 97 08/14/18 15:46 98 33 97 Bi-pap 100 08/14/18 15:38 99 32 97 Facial 100 08/14/18 15:38 99 32 97 Bi-pap 100 08/14/18 14:17 96 32 94 Full Face 100 08/14/18 13:34 97 08/14/18 12:16 101 128/59 08/14/18 12:00 99.1 101 30 128/59 (82) 96 08/14/18 12:00 100 08/14/18 12:00 Bi-pap 08/14/18 11:41 96 27 95 Bi-pap 100 08/14/18 11:30 96 35 95 Bi-pap 100 08/14/18 11:15 93 35 93 Full Face 100 08/14/18 11:15 93 35 93 Bi-pap 100 Intake and Output 08/14/18 08/15/18 19:00 07:00 Intake Total 110.0 ml Output Total 200 ml 0 ml Balance -200 ml 110.0 ml IV Total 110.0 ml Output Urine Total 200 ml 0 ml Laboratory Tests 08/14/18 18:30: Urine Color Pale yellow, Urine Appearance Clear, Urine pH 5, Urine Specific Boles 1.020, Urine Protein 2+H, Urine Glucose (UA) Negative, Urine Ketones Negative, Urine Blood Negative, Urine Nitrite Negative, Urine Bilirubin Negative , Urine Urobilinogen Normal, Urine Leukocyte Esterase Negative, Urine RBC 0-2, Urine WBC 0-2, Urine Squamous Epithelial Cells None, Urine Amorphous Sediment FewH, Urine Bacteria None Height (Feet): 5 Height (Inches): 0.00 Weight (Pounds): 104 Objective General Appearance: WD/WN, lethargic, confused Neck: supple Cardiovascular: normal rate, regular rhythm Respiratory/Chest: crackles/rales, rhonchi - bilaterally Abdomen: normal bowel sounds, non tender, soft, no organomegaly Edema: no edema noted Arm (L), no edema noted Arm (R), no edema noted Leg (L), no edema noted Leg (R), no edema noted Pedal (L), no edema noted Pedal (R), no edema noted Generalized Neurologic: disoriented, unresponsive, aphasia Doug Kaur MD Aug 15, 2018 11:05
--- NOTE | 2018-08-15 13:30 | NUR ---
NURSE NOTES: Patient remains picked up by [facility] by Silvino Avina.
[2018-08-15] MEDS ORDERED: Tubing Blood Filter IV ONE (13:37)
[2018-08-15] MEDS ORDERED: NS 275ml ONE ×2 (13:37)
[2018-08-15] MEDS ORDERED: Tubing IV Secondary IV ONE (13:37)
--- NOTE | 2018-08-16 01:30 | Progress Note ---
DATE: 08/15/2018 CARDIOLOGY PROGRESS NOTE SUBJECTIVE: The patient was seen and evaluated with entire family members at bedside. She is preterminal and family members are aware. They were made aware of options for mechanical ventilation, but refused. want an NG tube placed. They want transfer ____ care. OBJECTIVE: VITAL SIGNS: Blood pressure 100/58, pulse 92, respiratory rate 40, and temperature max 100.9. LUNGS: Accessary muscle use. Diminished breath sounds. Paradoxical respiration. Bilateral rales. HEART: Regular rhythm and rate. ABDOMEN: Soft. EXTREMITIES: Trace edema. IMPRESSION: 1. ____ respiratory failure. 2. Healthcare-acquired pneumonia. 3. History of asthma. 4. Acute on chronic diastolic congestive heart failure. 5. Severe protein-calorie malnutrition. 6. Insulin-requiring diabetes mellitus. PLAN: 1. BiPAP support. 2. Pain control. 3. Respiratory hygiene. 4. IV antibiotics per Infectious Disease remediation bioanalytics consultant. 5. Diuresis. 6. Family members offered a morphine drip if the patient is increasingly uncomfortable. Willian Hobson M.D. DR: HELENA JOB#: [id number] CC:
--- NOTE | 2018-08-18 09:55 | Discharge Summary ---
Discharge Summary Discharge Summary _ SUMMARY DATE OF ADMISSION: 08/11/2018 DATE OF EXPIRATION: 08/15/2018 REASON FOR ADMISSION: 73 years old female with past medical history of hypertension, hyperlipidemia, congestive heart failure, asthma,diabetes mellitus, chronic anemia, chronic kidney disease, DNR/DNI status, presented from the [facility] facility where she recovering after being treated for Pseudomonas pneumonia at [facility]. Patient apparently had severe respiratory distress and required BiPAP at that time. Sputum culture grew Pseudomonas, and patient was discharged on IV antibiotics to complete the course at the [facility]. While in facility patient developed respiratory distress with overall worsening of her condition and was promptly transferred to emergency department for further evaluation and management. Upon evaluation patient was congested, but denied chest pain. Upon workup patient noted to have respiratory failure. She was tachycardic, tachypneic, and hypoxic. She was started on BiPAP. Patient somewhat improved after BiPAP. Patient received intravenous Lasix. Patient started on empiric antibiotic after pancultured for presumed pneumonia. Laboratory workup revealed leukocytosis WBC 18, hemoglobin 8.8, hematocrit 27.5 , platelet count 94. Urinalysis revealed +3 protein, no pyuria and few bacteria, +1 leukocyte esterase. EKG revealed sinus tachycardia, no acute ischemic changes. Troponin -0.014. Pro BNP 74041. Chest x-ray revealed bilateral diffuse interstitial and airspace disease with acuity undetermined. Right upper lobe masslike opacity versus more focal consolidation. Patient was admitted to stepdown unit for further management. CONSULTANTS: hot dimpling machine operator pulmonary Dr. Miranda ID specialist Dr. Sheldon HOSPITAL COURSE: Patient admitted to stepdown. DNR status was confirmed with family member. Supplemental oxygen initially provided via BiPAP with FiO2 titration to keep pulse oximetry above 90%. Pulmonary toilet with bronchodilator provided. After being pancultured , patient started on broad-spectrum antibiotic , including pseudomonas coverage. IV fluids was hold, given congestive heart failure. Antihypertensive medication titrated based on clinical parameters. DVT and GI prophylaxis provided. Blood sugar was managed with long-acting Levemir and sliding scale of short acting insulin as needed. Applications Project Manager, hot dimpling machine operator and ID specialists closely followed. Blood cultures were negative. Sputum culture was negative. Leukocytosis persisted. Patient with intermittent low-grade fever. Antibiotic regimen optimized as per ID specialist recommendation. Diuresis provided with close monitoring of volumes and cardiorenal parameters. Skill Labor closely followed. Hemoglobin and hematocrit were closely monitored with goal to keep hemoglobin above 8. Patient undergone transfusion of 1 unit of packed red blood cells; hemoglobin improved to 10.6 hematocrit 33.5. Renal parameters and electrolytes were closely monitored. Electrolytes /magnesium potassium, corrected as needed. Patient developed acute renal failure with creatinine rising from 1.3 to 1.8. Bedside swallow evaluation revealed high aspiration risk due to recurrent pneumonia. For quality of life recommended oral diet. Diet texture was changed as per speech therapist recommendation to moist pured with nectar thick liquids with strict aspiration/reflux precaution and one-to-one feeding. Video swallow evaluation was recommended. Metal Welder recommendation implemented in d plan of care. Patient was suctioned as needed. GI prophylaxis provided. Pain management was addressed. Supportive care provided. Respiratory status was not improving. Patient continued to need BiPAP support. Patient remained DNR/DNI status. Overall poor prognosis discussed with the family. Family was offered to start morphine drip for comfort, but family declined. Patient condition continued to decline. Patient was pronounced on 08/15 at 11:25. Cause of cardiopulmonary arrest FINAL DIAGNOSES: Acute respiratory failure requiring BiPAP Sepsis Extensive bilateral healthcare associated pneumonia History of recent Pseudomonas pneumonia Acute and chronic anemia , requiring blood transfusion Severe protein calorie malnutrition Acute on chronic diastolic congestive heart failure Type 2 diabetes mellitus with hyperglycemia Hypertension Asthma Acute renal failure on chronic kidney disease I have been assigned to dictate discharge summary for this account. I was not involved in the patient's management. Nhung Booth NP Aug 18, 2018 09:55
== END 2018-08-15 13:38 | disposition expired | DRG 871 ==
LOC: EDBD 20:52 → EMR 21:22 → 2W 22:02 → EDBEDREQ 22:50
PROC: 5A09457 Assistance with Respiratory Ventilation, 24-96 Consecutive Hours, Continuous Positive Airway Pressure (ICD-10-PCS; principal; 2018-08-11)
PROC: 30233N1 Transfusion of Nonautologous Red Blood Cells into Peripheral Vein, Percutaneous Approach (ICD-10-PCS; 2018-08-13)
DX: A41.9 Sepsis, unspecified organism (principal); J18.9 Pneumonia, unspecified organism; I50.33 Acute on chronic diastolic (congestive) heart failure; E43 Unspecified severe protein-calorie malnutrition; G92 Toxic encephalopathy; J96.01 Acute respiratory failure with hypoxia; I13.0 Hypertensive heart and chronic kidney disease with heart failure and stage 1 through stage 4 chronic kidney disease, or unspecified chronic kidney disease; N17.9 Acute kidney failure, unspecified; Z68.1 Body mass index [BMI] 19.9 or less, adult; B96.5 Pseudomonas (aeruginosa) (mallei) (pseudomallei) as the cause of diseases classified elsewhere; Y95 Nosocomial condition; E11.22 Type 2 diabetes mellitus with diabetic chronic kidney disease; N18.9 Chronic kidney disease, unspecified; E11.65 Type 2 diabetes mellitus with hyperglycemia; D64.9 Anemia, unspecified; J45.909 Unspecified asthma, uncomplicated; E78.5 Hyperlipidemia, unspecified; Z66 Do not resuscitate; E83.42 Hypomagnesemia
CPT/HCPCS: 36415; 36600; 71045; 80048; 80053; 80170; 81003; 82550; 82553; 82803; 82962; 83605; 83735; 83880; 84443; 84484; 85007; 85025; 85610; 85730; 86713; 86738; 86850; 86900; 86901; 86920; 87040; 87070; 87081; 87205; 93005; 93306; 94640; 94660; 94664; 96361; 96365; 96366; 96367; 96368; 99291; J1580; J1815; J7620; S5561